=== PATIENT | male | born 1935 | race Caucasian/White ===

== ENCOUNTER → 2021-02-05 09:58 | Outpatient (BNVA) | payer MEDICARE, SELFPAY | PROVIDERS: PCP Nurse Practitioner Family; Referring Provider Nurse Practitioner Family; Visit Provider Internal Medicine Cardiovascular Disease | DX: I25.10 Atherosclerotic heart disease of native coronary artery without angina pectoris (principal); I10 Essential (primary) hypertension | CPT/HCPCS: 93005; 99202 ==

== ENCOUNTER 2021-03-26 08:16 | Outpatient (REF) | payer OTHER, SELFPAY ==
[2021-03-26 12:13] LABS: Alanine Aminotransferase 10 U/L (0-40); Albumin Level 3.6 g/dL (3.5-5.0); Alkaline Phosphatase 51 U/L (39-117); Anion Gap 13 (12-20); Aspartate Amino Transferase 15 U/L (5-37); Bilirubin Total 0.5 mg/dL (0.0-1.0); Blood Urea Nitrogen 15 mg/dL (9-16); Calcium 8.7 mg/dL (8.4-10.2); Carbon Dioxide 27 mmol/L (22-29); Chloride 106 mmol/L (96-108); Cholesterol 155 mg/dL; Estimated Glomerular Filt Rate > 60; Glucose Fasting 90 mg/dL (60-99); HDL Cholesterol 31 mg/dL; LDL Cholesterol Calculated 110 mg/dl; Potassium 4.1 mmol/L (3.3-5.1); Sodium 142 mmol/L (135-145); Total Protein 7.1 g/dL (6.5-8.0); Triglycerides 74 mg/dL
[2021-03-26 12:19] LABS: Prostate Specific Antigen Scr < 0.05 ng/mL (<0.05-4.0); TSH reflex Free T4 2.58 uIU/mL (0.32-4.0)
[2021-03-26 13:53] LABS: Appearance Urine CLEAR; Color Urine YELLOW; Glucose Urine UA NEG (NEG); Leukocyte Esterase Urine NEG (NEG); Nitrite Urine NEG (NEG); Specific Gravity - Urine 1.015 (1.005-1.025); UACC Culture Trigger NO; Urine Blood TRACE (NEG); Urine Ketones NEG (NEG); Urine Protein NEG (NEG-TRACE)
[2021-03-26 14:15] LABS: Bacteria Urine TRACE /LPF; Squamous Epithelial Cell Urine TRACE /LPF; WBC Urine 0-2 /HPF (0-4)
[2021-03-26 14:16] LABS: Hyaline Casts Urine 0-2 /LPF; Mucus Urine 1+ /LPF
== END 2021-03-26 08:17 | disposition home or self-care (01) ==
LOC: HO.HMGCLDS 08:16
PROVIDERS: PCP Nurse Practitioner Family; Visit Provider Nurse Practitioner Family
DX: Z00.00 Encounter for general adult medical examination without abnormal findings (principal); I10 Essential (primary) hypertension; Z12.5 Encounter for screening for malignant neoplasm of prostate
CPT/HCPCS: 36415; 80053; 80061; 81001; 84153; 84443

== ENCOUNTER → 2021-04-22 14:14 | Outpatient (REF) | payer OTHER, SELFPAY ==
--- NOTE | 2021-04-22 14:17 | CA_ITS ---
Transthoracic Echocardiogram Patient (Last, First, Middle): Aguila Sow G Gender: Male Date of : 1935 Age: 85 Procedure Date: 04/22/2021 Procedure Type: Transthoracic Echocardiogram Location: OP Height: 172.72 cm Weight: 77.11 kg BSA: 1.91 m2 Heart Rate: bpm BP: 140 / 86 mmHg Mirror Machine Feeder: DIDI Referring MD: Justin Roman [facility] Symptoms: Z95.1 - Presence of aortocoronary bypass graft Study Quality: Fair ECG Rhythm: Sinus Conclusions: - The left ventricular systolic function is normal. The calculated ejection fraction is 60% by biplane method. - The basal inferior segment is hypokinetic. - There is moderately decreased right ventricular systolic function. - There is mild calcification of the aortic valve. - There is mild dilatation of the ascending aorta measuring 3.90 cm. Findings Left Ventricle Normal left ventricular cavity size. There is mildly increased left ventricular wall thickness. The left ventricular systolic function is normal. The calculated ejection fraction is 60% by biplane method. There is evidence of regional wall motion abnormalities. Moderate focal hypertrophy of the basal septum. Wall Motion Rest Echo Findings The basal inferior segment is hypokinetic. Right Ventricle Normal right ventricular cavity size. There is moderately decreased right ventricular systolic function. Atria Both atria are normal in size. Aortic Valve There is a normal trileaflet aortic valve. There is mild calcification of the aortic valve. There is no aortic valve stenosis. There is trace (trivial) aortic valve regurgitation. Mitral Valve The mitral valve appears normal. There is trace mitral valve regurgitation. There is no mitral valve stenosis. Pulmonic Valve The pulmonic valve was not well visualized. Tricuspid Valve Normal tricuspid valve structure. There is trace tricuspid valve regurgitation. The pulmonary artery systolic pressure is normal. Great Vessels The aortic arch is normal in size. There is mild dilatation of the ascending aorta measuring 3.90 cm. Venous The inferior vena cava is normal in size and collapses greater than 50% with inspiration. Pericardium/Pleural There is no evidence of pericardial effusion. Prior Study Comparison No prior study available for comparison. Measurements 2D Linear Measurements IVSd: 1.06 0.6-0.9/0.6-1.0 cm LVIDd: 5.01 3.9-5.3/4.2-5.9 cm LVIDd Index: 2.62 2.4-3.2/2.2-3.1 cm/m2 LVIDs: 3.11 2.0-3.6 cm LVPWd: 1.27 0.7-1.1 cm Ao Root: 3.80 2.1-3.5 cm LA Diam: 3.60 2.7-3.8/3.0-4.0 cm LAIDs Index: 1.88 1.5-2.3 cm/m2 LV Mass: 280.48 67-162/88-224 g LV Mass Index: 146.85 43-95/49-115 g/m2 LVOT Diam: 2.10 3.0+(-)1.3 cm 2D Systolic Function EF 4C: 60.80 >55% EF 2C: 55.50 >55% EF BiP: 59.50 >55% Mitral Valve MV Pk E: 0.61 MV PK A: 0.88 MV Decel Time: 295.00 E/A: 0.70 E'Lateral: 5.00 E'Medial: 3.26 E/E' Med: 18.60 E/E' Lat: 12.10 PHT: 86.00 MVA PHT: 2.56 Decel [place]: 2.06 Aortic Valve AoV Pk Ag: 1.15 AoV Mn Ag: 0.80 AoV VTI: 0.24 AoV Pk Grad: 5.00 Aov Mn Grad: 3.00 FELIPE Cont.VTI: 2.44 LVOT LVOT Pk Ag: 0.83 LVOT Mn Ag: 0.60 LVOT VTI: 0.17 LVOT Pk Grad: 3.00 LVOT Mn Grad: 2.00 LVOT Diam: 2.10 LVOT Area: 3.46 Diastolic Function MV Pk E: 0.61 MV Pk A: 0.88 E/A: 0.70 E'Medial: 3.26 E/E' Med: 18.60 E' Laterial: 5.00 E/E' Lat: 12.10 Right Ventricle TAPSE (mm): 12.90 TVS' Ag: 10.80 Tricuspid Valve TR Pk Ag: 2.23 TR Pk Grad: 20.00 RA Press: 3.00 RVSP: 23.00 Great Vessels Aorta Ao Root-2D: 3.80 2.0-3.7 cm Ao Asc: 3.90 2.1-3.4 cm Ao Arch: 3.10 Updated in Other Vendor System with Status of Final Yovani Wilkerson MD electronically signed on 04/23/2021 4:35:01 PM with status of Final
== END ==
LOC: HO.CARD 14:14
PROVIDERS: Visit Provider Nurse Practitioner Family
DX: I10 Essential (primary) hypertension (principal); I25.10 Atherosclerotic heart disease of native coronary artery without angina pectoris; Z95.1 Presence of aortocoronary bypass graft
CPT/HCPCS: 93306

== ENCOUNTER 2021-04-29 11:55 | Outpatient (REF) | payer OTHER, SELFPAY ==
[2021-04-29 14:00] LABS: Urine Cytology See Pathology rpt
[2021-04-29 14:02] LABS: Appearance Urine HAZY; Color Urine YELLOW; Glucose Urine UA NEG (NEG); Leukocyte Esterase Urine NEG (NEG); Nitrite Urine NEG (NEG); PH 6.5 (5.0-8.0); Specific Gravity - Urine <= 1.005 (1.005-1.025); Urine Blood NEG (NEG); Urine Ketones NEG (NEG); Urine Protein TRACE MG/DL (NEG-TRACE)
[2021-04-29 14:10] LABS: RBC Urine 0-2 /HPF (0); Squamous Epithelial Cell Urine TRACE /LPF; WBC Urine 0-2 /HPF (0-4)
== END 2021-04-29 11:56 | disposition home or self-care (01) ==
LOC: HO.HMGCLDS 11:55
PROVIDERS: Visit Provider Nurse Practitioner Family
DX: R31.29 Other microscopic hematuria (principal)
CPT/HCPCS: 81001; 87086; 88112

== ENCOUNTER 2021-05-22 12:23 | Emergency (ER) | payer OTHER, SELFPAY ==
--- NOTE | ~2021-05-22 | CT_ITS ---
EXAMINATION: CT CHEST WITHOUT CONTRAST CLINICAL INFORMATION: Cough, dyspnea COMPARISON: Chest x-ray same day TECHNIQUE: Multidetector volumetric CT imaging of the chest was done. Axial MIP volume rendering provided. Sagittal and coronal reformatted images were obtained. This CT examination was performed using dose optimization techniques as appropriate, variously including the following: *Automated exposure control *Adjustment of mA and/or kV according to patient size (this includes techniques or standardized protocols for targeted exams where dose is matched to indication/reason for exam; i.e. extremities or head) *Use of iterative reconstruction technique DLP: 288 mGy-cm FINDINGS: The thoracic inlet is within normal limits. The axillary regions are unremarkable. Limited visualized upper abdominal structures show low-density lesion superior right liver of uncertain etiology. This may be incidental. Measures 1.5 cm. Otherwise grossly unremarkable upper abdominal structures. Probable gallstones in the gallbladder Centrally coronary calcifications are noted. Mildly prominent central nodes. This is a noncontrast study. Difficult to evaluate the hilar regions for adenopathy. This cannot be excluded. Imaging the lung joyner. Right lung; There is evidence of reticular nodular and airspace change in the right upper lung. Mild pleural parenchymal changes in the right lower lung. These could be chronic but atelectasis/pleural reaction would need to be considered. There are also some reticular nodular changes in the right lower lung involving the lung parenchyma. Calcified granulomas are noted Left lung There is only more mild interstitial change in the left lung. This could represent the patient's baseline. No large area of infiltrate or effusion. Probable basilar atelectasis or scarring. Calcified granuloma noted. CT/CT chest wo con IMPRESSION: Exam is most remarkable for reticular nodular change occurring in the right upper lung greater than right lower lobe. Findings suggest acute infiltrate. There is thickened pleural change at the right base in pleural-parenchymal markings which may be chronic versus acute pleural reaction. Attention to follow-up. More normal-appearing left lung with evidence of some scattered areas of opacity which may be chronic versus subtle mild areas of infiltrate. There is prominent central adenopathy. Given the findings in the lungs this could be reactive. Attention to follow-up. Small low-density lesion superior liver. May be incidental
--- NOTE | ~2021-05-22 | XR_ITS ---
EXAMINATION: XR CHEST CLINICAL INFORMATION: Cough. COMPARISON: None TECHNIQUE: Frontal view of the chest was obtained. FINDINGS: Diffuse, patchy right lung airspace opacities, most prominent within the mid right lung. Possible trace bilateral pleural effusions versus pleural thickening. No pneumothorax. Sternal wires and mediastinal surgical clips. No cardiomediastinal silhouette enlargement. XR/XR chest 1V IMPRESSION: Diffuse, patchy right lung airspace opacities which could represent multifocal pneumonia. Possible trace bilateral pleural effusions versus pleural thickening.
[2021-05-22 12:47] VITALS: BP 220/97; PULSE 65; RESP 18; TEMP 37.2; O2SAT 96; BMI 26.6
--- NOTE | 2021-05-22 12:53 | ECG_ITS ---
Test Reason : sob Blood Pressure : / mmHG Vent. Rate : 063 BPM Atrial Rate : 063 BPM P-R Int : 212 ms QRS Dur : 100 ms QT Int : 440 ms P-R-T Axes : 040 -33 033 degrees QTc Int : 450 ms Sinus rhythm with 1st degree A-V block Left axis deviation Inferior infarct , age undetermined Abnormal ECG No previous ECGs available Referred By: Generic ED Physician Electronically Signed By:TRACY ANDERSON MD
[2021-05-22 13:17] LABS: Basophils Percent Auto 0.1 % (0-2); Eosinophils Absolute Auto 0.1 X10*3/uL (0.0-0.4); Eosinophils Percent Auto 1.4 % (0-4); Hematocrit 31.7 % (42.0-52.0); Hemoglobin 10.3 g/dl (14.0-18.0); Imm Gran Abs Auto 0.08 X10*3/uL (0.00-0.03); Imm Gran Pct Auto 0.9 % (0.0-0.4); Lymphocytes Absolute Auto 1.4 X10*3/uL (1.2-4.9); Lymphocytes Percent Auto 16.1 % (20-40); MANUAL DIFF FLAG SCAN; Mean Corpuscular HGB Conc 32.5 g/dl (31.0-36.0); Mean Corpuscular Volume 89.3 fL (80.0-98.0); Mean Platelet Volume 10.5 fL (9.4-12.4); Monocytes Absolute Auto 1.8 X10*3/uL (0.1-1.2); Monocytes Percent Auto 20.8 % (2-11); Neutrophils Absolute Auto 5.3 x10*3/uL (2.0-8.3); Neutrophils Percent Auto 60.7 % (45-73); Platelet Count 186 X10*3/uL (160-400); Red Blood Count 3.55 X10*6/uL (4.60-5.80); Red Cell Distribution Width 13.3 % (11.0-16.0); SCAN SMEAR FLAG 1; White Blood Count 8.7 X10*3/uL (4.8-10.8)
[2021-05-22 13:30] LABS: Anion Gap 14 (12-20); Blood Urea Nitrogen 19 mg/dL (9-16); COVID-19 Test Negative (Negative); Calcium 8.6 mg/dL (8.4-10.2); Carbon Dioxide 24 mmol/L (22-29); Chloride 105 mmol/L (96-108); Creatinine Clr Calc Pharmacy 48.8; Estimated Glomerular Filt Rate > 60; Glucose Random 119 mg/dL (60-115); Potassium 4.5 mmol/L (3.3-5.1); Sodium 138 mmol/L (135-145)
[2021-05-22 13:36] LABS: Troponin-I High Sensitivity 10.2 ng/L (<3.5-35.0)
[2021-05-22 13:38] LABS: SLIDE REVIEW VERIFIED
--- NOTE | 2021-05-22 14:28 | ED.SOB ---
HPI - SOB/Dyspnea General Chief Complaint: Upper Respiratory Symptoms Stated Complaint: Cough/Congested Time Seen by Provider: 05/22/21 12:37 Source: patient and family Mode of arrival: ambulatory Limitations: no limitations History of Present Illness HPI Narrative: states his doctor could not see him and they kept canceling his appointments MD elicited complaint: shortness of breath and cough Onset (ago): month(s) (3) Context: other (worse with laying flat, has post nasal drip, noted wheezing, worse with sleeping, runny nose, itchy eyes, blows his nose a lot) Timing: intermittent Exacerbating factors: lying flat Relieving factors: upright position Associated symptoms: wheezing and other (post nasal drip, itchy watery eyes) Related Data Home Medications Medication Instructions Recorded Confirmed amlodipine 10 mg tablet 10 mg PO DAILY 11/29/20 03/17/21 aspirin 81 mg tablet,delayed 81 mg PO DAILY 01/13/21 03/17/21 release Previous Rx's Medication Instructions Recorded losartan 100 mg tablet 100 mg PO DAILY 90 Days #90 tab 05/21/21 Allergies Allergy/AdvReac Type Severity Reaction Status Date / Time codeine Allergy Mild mild Verified 03/17/21 11:40 Penicillins Allergy Mild mild Verified 03/17/21 11:40 morphine Allergy Unknown unknown Verified 03/17/21 11:40 Review of Systems Review of Systems: Constitutional : No Fever, No Chills ENT/Mouth : No sore throat, No Rhinorrhea, No Swallowing Difficulty, pos post nasal drip Eyes: No Eye Pain, No Swelling, No Redness Cardiovascular : No Chest Pain, positive SOB, pos Orthopnea, no Edema Respiratory : No Cough, No Sputum, pos Wheezing, positive dyspnea Gastrointestinal : No Nausea, No Vomiting, No Diarrhea, No abdominal Pain, No Hematochezia, No Melena Genitourinary : No Dysuria, No Urinary Frequency, No Hematuria Musculoskeletal : No joint pain, No Myalgias Skin : No Skin Lesions, No rash Neuro : No Weakness, No Numbness, No Dizziness, No Headache Psych : No Anxiety/Panic, No Depression Heme/Lymph: No Bruising, No Lymphadenopathy Endocrine : No Polyuria, No Polydipsia All other systems reviewed and are negative [facility] Past Medical History Attestation statement: The following information was validated with the patient. Medical History CAD (coronary artery disease) Cancer of skin of left ear High blood pressure HTN (hypertension) Prostate cancer Surgical History S/P CABG x 5 Family History Family History Mother High blood pressure Father Heart disease Other Substance use disorder Social History Social History Housing: Other (assisted living) Patient Tobacco Use Status: Former Tobacco user Tobacco use type: Cigarette Advance Directives: No Advance Directives Information Provided: Yes Current occupational status: retired Physical Exam Vital Signs: Vital Signs: Last Vital Signs Temp 98.5 F 05/22/21 15:35 Pulse 78 05/22/21 15:35 Resp 18 05/22/21 15:35 BP 211/102 H 05/22/21 15:45 Pulse Ox 95 05/22/21 15:35 BMI result Body Mass Index 26.6 Appearance: Alert. Oriented X3. No acute distress. Eyes: Pupils equal, round and reactive to light. ENT: Pharynx normal. Clear runny nose boggy turbinates bilaterally Neck: Normal inspection. Neck supple. CVS: Normal heart rate and rhythm. Pulses normal. Respiratory: No respiratory distress. Breath sounds diffuse end exp wheezes noted posteriorly Abdomen: Soft and non-tender. Skin: Skin warm and dry. Normal skin color. Normal skin turgor. Extremities: No lower extremity edema. Neuro: Oriented X 3. No motor deficit. No sensory deficit. Course Course Course Narrative: BP high - did not take his BP medications this AM, does not sound like he is very compliant with his medications trop is flat, BNP in 400s CT scan ordered, hazy areas R lung - signed out to Dr. Ortiz pending CT scan and review of BPs CXR possible multifocal PNA - R lung possible infection suspected 413pm cultures and lactic acid ordered 98% on RA MDM - SOB/Dyspnea MDM Narrative Medical decision making narrative: 85 yo male with hx of HTN, dementia, hematuria, CAD, weakness here with c/o wheezing, post nasal drip, worse at night laying flat, has not received any treatment not on diuretics. He has no CP. At this time will need troponin x 2, BNP, CXR, neb treatment. Could possibly be post nasal drip may benefit from fluticasone. Dispo per results and findings. Lab Data Result diagrams: 05/22/21 13:08 05/22/21 13:08 Labs: Lab Results 05/22/21 05/22/21 05/22/21 Range/Units 13:08 13:08 13:08 WBC 8.7 (4.8-10.8) X10*3/uL RBC 3.55 L (4.60-5.80) X10*6/uL Hgb 10.3 L (14.0-18.0) g/dl Hct 31.7 L (42.0-52.0) % MCV 89.3 (80.0-98.0) fL MCH 29.0 (27.0-33.0) pg MCHC 32.5 (31.0-36.0) g/dl RDW 13.3 (11.0-16.0) % Plt Count 186 (160-400) X10*3/uL MPV 10.5 (9.4-12.4) fL Immature Gran % (Auto) 0.9 H (0.0-0.4) % Neut % (Auto) 60.7 (45-73) % Lymph % (Auto) 16.1 L (20-40) % [place] % (Auto) 20.8 H (2-11) % Eos % (Auto) 1.4 (0-4) % Baso % (Auto) 0.1 (0-2) % Lymph # (Auto) 1.4 (1.2-4.9) X10*3/uL [place] # (Auto) 1.8 H (0.1-1.2) X10*3/uL Eos # (Auto) 0.1 (0.0-0.4) X10*3/uL Baso # (Auto) 0.0 (0.0-0.2) X10*3/uL Abs Immat Gran (auto) 0.08 H (0.00-0.03) X10*3/uL Absolute Neuts (auto) 5.3 (2.0-8.3) x10*3/uL Absolute Nucleated RBC 0.000 (0.0-0.012) X10*3/uL Nucleated RBC % (auto) 0.0 (0.0-0.2) /100WBC Smear Tech's Comments VERIFIED Sodium 138 (135-145) mmol/L Potassium 4.5 (3.3-5.1) mmol/L Chloride 105 (96-108) mmol/L Carbon Dioxide 24 (22-29) mmol/L Anion Gap 14 (12-20) BUN 19 H (9-16) mg/dL Creatinine 1.09 (0.5-1.4) mg/dL Estim Creat Clear Calc 48.8 Estimated GFR > 60 Random Glucose 119 H (60-115) mg/dL Calcium 8.6 (8.4-10.2) mg/dL Total Bilirubin 0.5 (0.0-1.0) mg/dL Direct Bilirubin 0.2 (0.0-0.5) mg/dL AST 15 (5-37) U/L ALT 11 (0-40) U/L Alkaline Phosphatase 43 (39-117) U/L Troponin I High Sens (<3.5-35.0) ng/L B-Natriuretic Peptide (<100) pg/mL Total Protein 6.4 L (6.5-8.0) g/dL Albumin 3.4 L (3.5-5.0) g/dL COVID-19 (MANOJ) Negative (Negative) COVID-19 Clin Com See Note 05/22/21 05/22/21 05/22/21 Range/Units 13:08 15:16 15:16 WBC (4.8-10.8) X10*3/uL RBC (4.60-5.80) X10*6/uL Hgb (14.0-18.0) g/dl Hct (42.0-52.0) % MCV (80.0-98.0) fL MCH (27.0-33.0) pg MCHC (31.0-36.0) g/dl RDW (11.0-16.0) % Plt Count (160-400) X10*3/uL MPV (9.4-12.4) fL Immature Gran % (Auto) (0.0-0.4) % Neut % (Auto) (45-73) % Lymph % (Auto) (20-40) % [place] % (Auto) (2-11) % Eos % (Auto) (0-4) % Baso % (Auto) (0-2) % Lymph # (Auto) (1.2-4.9) X10*3/uL [place] # (Auto) (0.1-1.2) X10*3/uL Eos # (Auto) (0.0-0.4) X10*3/uL Baso # (Auto) (0.0-0.2) X10*3/uL Abs Immat Gran (auto) (0.00-0.03) X10*3/uL Absolute Neuts (auto) (2.0-8.3) x10*3/uL Absolute Nucleated RBC (0.0-0.012) X10*3/uL Nucleated RBC % (auto) (0.0-0.2) /100WBC Smear Tech's Comments Sodium (135-145) mmol/L Potassium (3.3-5.1) mmol/L Chloride (96-108) mmol/L Carbon Dioxide (22-29) mmol/L Anion Gap (12-20) BUN (9-16) mg/dL Creatinine (0.5-1.4) mg/dL Estim Creat Clear Calc Estimated GFR Random Glucose (60-115) mg/dL Calcium (8.4-10.2) mg/dL Total Bilirubin (0.0-1.0) mg/dL Direct Bilirubin (0.0-0.5) mg/dL AST (5-37) U/L ALT (0-40) U/L Alkaline Phosphatase (39-117) U/L Troponin I High Sens 10.2 9.6 (<3.5-35.0) ng/L B-Natriuretic Peptide 404 H (<100) pg/mL Total Protein (6.5-8.0) g/dL Albumin (3.5-5.0) g/dL COVID-19 (MANOJ) (Negative) COVID-19 Clin Com ECG Data Attestation: I personally reviewed and interpreted this ECG as follows: ECG interpretation date: 05/22/21 ECG interpretation time: 14:30 Interpretation: Rate: 63 Rhythm: NSR with 1st degree AVB Lester: left Normal P waves. 1st degree avb. Normal QRS complex. q waves in inf leads appear new from 2020 ST T wave : no MANNY, inverted V1-V2 qTC: normal prior studies: ECG in office 2020 new q waves and V2 t wave inversion is new The study has been interpreted contemporaneously by me. Discharge Plan Discharge Clinical Impression: Acute dyspnea HTN (hypertension) Qualifiers: Hypertension type: unspecified Qualified Code(s): I10 - Essential (primary) hypertension Patient Disposition: Still a Patient Prescriptions: No Action amlodipine 10 mg tablet 10 mg PO DAILY 0RF losartan 100 mg tablet 100 mg PO DAILY 90 Days Qty: 90 0RF aspirin 81 mg tablet,delayed release (DR/EC) 81 mg PO DAILY 0RF
[2021-05-22] MEDS: Albuterol Sulfate (0.083%) 2.5 MG/3 ML VIAL.NEB INHALE (14:50)
[2021-05-22 14:53] VITALS: PULSE 61; RESP 20; O2SAT 100
[2021-05-22 14:54] LABS: Alanine Aminotransferase 11 U/L (0-40); Albumin Level 3.4 g/dL (3.5-5.0); Alkaline Phosphatase 43 U/L (39-117); Aspartate Amino Transferase 15 U/L (5-37); Bilirubin Direct 0.2 mg/dL (0.0-0.5); Bilirubin Total 0.5 mg/dL (0.0-1.0); Total Protein 6.4 g/dL (6.5-8.0)
[2021-05-22 15:35] VITALS: BP 215/142; PULSE 78; RESP 18; TEMP 36.9; O2SAT 95
[2021-05-22 15:41] LABS: B Type Natriuretic Peptide 404 pg/mL (<100); Troponin-I High Sensitivity 9.6 ng/L (<3.5-35.0)
[2021-05-22 15:45] VITALS: BP 211/102
[2021-05-22] MEDS: Metoprolol Succinate ER 25 MG TAB.ER.24H PO (15:50)
[2021-05-22] MEDS: amLODIPine Besylate 10 MG TABLET PO (15:50)
--- NOTE | 2021-05-22 17:29 | PC.NURSE ---
pt a very difficult IV stick and phlebotomy stick. IV established but phlebotomy contacted for the blood cultures and lactic that is still needed, contacted phlebtomy as 2 attempts done
[2021-05-22 18:01] LABS: Lactic Acid 1.2 mmol/L (0.5-2.0)
[2021-05-22] MEDS: cefTRIAXone sodium 1 GM in 0.9 % Sodium Chloride 50 ML IV (18:28)
[2021-05-22] MEDS: Doxycycline Hyclate 100 MG in 0.9 % Sodium Chloride 250 ML 166.67 MG IV (19:16)
[2021-05-22 19:22] VITALS: BP 178/79; PULSE 72; RESP 18; O2SAT 93
[2021-05-22 19:25] LABS: Influenza A PCR NEGATIVE (Negative); Influenza B PCR NEGATIVE (Negative); Resp Syncy Virus RNA Qual PCR NEGATIVE (Negative); SARS COV2 PCR INHOUSE NEGATIVE (Negative)
[2021-05-22 20:46] VITALS: BP 149/84; PULSE 73; RESP 15; TEMP 36.9; O2SAT 95
== END 2021-05-22 20:56 | disposition home or self-care (01) ==
PROVIDERS: Emergency Medicine; Nurse Practitioner Family; Emergency Provider Emergency Medicine; PCP Nurse Practitioner Family
DX: R05.9 Cough, unspecified (principal); R06.02 Shortness of breath; Z20.822 Contact with and (suspected) exposure to COVID-19; I10 Essential (primary) hypertension; Z79.82 Long term (current) use of aspirin; Z79.899 Other long term (current) drug therapy
CPT/HCPCS: 0241U; 36415; 71045; 71250; 80048; 80076; 83605; 83880; 84484; 85025; 87040; 87502; 87635; 93005; 96365; 96367; 99284; J0696

== ENCOUNTER 2021-06-06 14:45 | Outpatient (REF) | payer OTHER, SELFPAY ==
[2021-06-06 16:37] LABS: Urine Cytology See Pathology rpt
== END 2021-06-06 14:46 | disposition home or self-care (01) ==
LOC: HO.LAB 14:45
PROVIDERS: PCP Nurse Practitioner Family
DX: R31.29 Other microscopic hematuria (principal)
CPT/HCPCS: 88112; 99202

== ENCOUNTER 2021-07-31 08:14 | Outpatient (REF) | payer OTHER, SELFPAY ==
[2021-07-31 11:23] LABS: Appearance Urine CLEAR; Color Urine YELLOW; Glucose Urine UA NEG (NEG); Leukocyte Esterase Urine NEG (NEG); Nitrite Urine NEG (NEG); UACC Culture Trigger NO; Urine Blood 1+ (NEG); Urine Ketones NEG (NEG); Urine Protein NEG (NEG-TRACE)
[2021-07-31 11:36] LABS: Basophils Percent Auto 0.3 % (0-2); Eosinophils Absolute Auto 0.1 X10*3/uL (0.0-0.4); Hematocrit 37.6 % (42.0-52.0); Hemoglobin 12.3 g/dl (14.0-18.0); Imm Gran Abs Auto 0.02 X10*3/uL (0.00-0.03); Imm Gran Pct Auto 0.3 % (0.0-0.4); Lymphocytes Absolute Auto 2.2 X10*3/uL (1.2-4.9); MANUAL DIFF FLAG SCAN; Mean Corpuscular HGB Conc 32.7 g/dl (31.0-36.0); Mean Corpuscular Hemoglobin 29.7 pg (27.0-33.0); Mean Corpuscular Volume 90.8 fL (80.0-98.0); Mean Platelet Volume 11.6 fL (9.4-12.4); Monocytes Absolute Auto 1.6 X10*3/uL (0.1-1.2); Monocytes Percent Auto 23.1 % (2-11); Neutrophils Absolute Auto 3.1 x10*3/uL (2.0-8.3); Neutrophils Percent Auto 44.3 % (45-73); Platelet Count 136 X10*3/uL (160-400); Red Blood Count 4.14 X10*6/uL (4.60-5.80); Red Cell Distribution Width 14.6 % (11.0-16.0); SCAN SMEAR FLAG 1
[2021-07-31 11:51] LABS: SLIDE REVIEW VERIFIED
[2021-07-31 11:57] LABS: Alanine Aminotransferase 11 U/L (0-40); Alkaline Phosphatase 45 U/L (39-117); Anion Gap 12 (12-20); Aspartate Amino Transferase 18 U/L (5-37); Bilirubin Total 0.8 mg/dL (0.0-1.0); Blood Urea Nitrogen 17 mg/dL (9-16); Calcium 8.9 mg/dL (8.4-10.2); Carbon Dioxide 26 mmol/L (22-29); Chloride 104 mmol/L (96-108); Cholesterol 158 mg/dL; Estimated Glomerular Filt Rate > 60; Glucose Fasting 90 mg/dL (60-99); HDL Cholesterol 40 mg/dL; LDL Cholesterol Calculated 107 mg/dl; Potassium 4.2 mmol/L (3.3-5.1); Sodium 138 mmol/L (135-145); Total Protein 7.6 g/dL (6.5-8.0); Triglycerides 55 mg/dL
[2021-07-31 12:01] LABS: TSH reflex Free T4 3.28 uIU/mL (0.32-4.0)
[2021-07-31 12:16] LABS: WBC Urine 0 /HPF (0-4)
== END 2021-07-31 08:15 | disposition home or self-care (01) ==
LOC: HO.HMGCLDS 08:14
PROVIDERS: PCP Nurse Practitioner Family; Visit Provider Nurse Practitioner Family
DX: F32.A Depression, unspecified (principal)
CPT/HCPCS: 36415; 80053; 80061; 81001; 84443; 85025

== ENCOUNTER → 2021-08-14 10:11 | Outpatient (BNVA) | payer OTHER, SELFPAY | PROVIDERS: PCP Nurse Practitioner Family; Visit Provider Urology | DX: N39.3 Stress incontinence (female) (male) (principal); R31.29 Other microscopic hematuria; C61 Malignant neoplasm of prostate | CPT/HCPCS: 99202 ==

== ENCOUNTER 2021-09-09 10:10 | Outpatient (REF) | payer OTHER, SELFPAY ==
[2021-09-09 12:15] LABS: Baso%MD 0.1 %; Eos%MD 0.4 %; Hematocrit 36.5 % (42.0-52.0); Hemoglobin 12.1 g/dl (14.0-18.0); IG%MD 0.4 %; Lymph%MD 30.9 %; Mean Corpuscular HGB Conc 33.2 g/dl (31.0-36.0); Mean Corpuscular Hemoglobin 29.5 pg (27.0-33.0); Mean Platelet Volume 10.5 fL (9.4-12.4); Mono%MD 22.1 %; Neut%MD 46.1 %; Platelet Count 138 X10*3/uL (160-400); Red Cell Distribution Width 13.5 % (11.0-16.0); White Blood Count 6.9 X10*3/uL (4.8-10.8)
[2021-09-09 12:36] LABS: Anion Gap 12 (12-20); Blood Urea Nitrogen 17 mg/dL (9-16); Calcium 9.2 mg/dL (8.4-10.2); Carbon Dioxide 26 mmol/L (22-29); Chloride 103 mmol/L (96-108); Estimated Glomerular Filt Rate > 60; Glucose Random 87 mg/dL (60-115); Potassium 4.4 mmol/L (3.3-5.1); Sodium 137 mmol/L (135-145)
[2021-09-09 12:48] LABS: Band Neutrophils Percent 0 % (3-5); Lymphocytes Absolute Manual 1.7 X10*3/uL (1.2-4.9); Lymphocytes Percent Manual 25 % (20-40); Monocytes Absolute Manual 1.2 X10*3/uL (0.1-1.2); Monocytes Percent Manual 17 % (2-11); Neutrophils Percent Manual 58 % (45-73)
[2021-09-09 12:49] LABS: Platelet Estimate SLIGHTLY DECREASED (NORMAL); Platelet Morphology Comment NORMAL; RBC Morphology NORMAL
[2021-09-09 13:00] LABS: Erythrocyte Sedimentation Rate 19 MM/HR (0-15)
[2021-09-09 13:01] LABS: TSH reflex Free T4 2.14 uIU/mL (0.32-4.0)
[2021-09-09 13:07] LABS: Folate > 20.0 ng/mL (> or = 4.0); Vitamin B12 822 pg/mL (200-900)
[2021-09-10 08:11] LABS: Syphilis Screen Nonreactive (Nonreactive)
== END 2021-09-09 10:11 | disposition home or self-care (01) ==
LOC: HO.LAB 10:10
PROVIDERS: PCP Nurse Practitioner Family; Visit Provider Psychiatry & Neurology Neurology
DX: F32.A Depression, unspecified (principal); R44.3 Hallucinations, unspecified; R41.3 Other amnesia
CPT/HCPCS: 36415; 80048; 82607; 82746; 84443; 85007; 85027; 85652; 86780; 99202

== ENCOUNTER 2021-09-26 08:27 | Outpatient (REF) | payer OTHER, SELFPAY ==
--- NOTE | ~2021-09-26 | CT_ITS ---
EXAMINATION: CT HEAD WITHOUT CONTRAST CLINICAL INFORMATION: Amnesia COMPARISON: None TECHNIQUE: Contiguous axial imaging was performed from the skull base to vertex without intravenous administration of contrast. This CT examination was performed using dose optimization techniques as appropriate, variously including the following: *Automated exposure control *Adjustment of mA and/or kV according to patient size (this includes techniques or standardized protocols for targeted exams where dose is matched to indication/reason for exam; i.e. extremities or head) *Use of iterative reconstruction technique DLP: 794 mGy-cm FINDINGS: There is no evidence of an extra-axial collection. There is no evidence of intra-axial or extra-axial hemorrhage. The ventricles and extra-axial CSF spaces are prominent just above generalized atrophy. There is nonspecific periventricular white matter disease. There are right basal ganglia and left thalamic lacunar infarcts. No mass, mass effect or other infarct is seen. There is evidence of atherosclerotic disease. Review at bone windows is normal. There is membranous soft tissue thickening seen in the left maxillary sinus. Visualized paranasal sinuses and mastoid air cells are otherwise clear. CT/CT head/brain wo con IMPRESSION: No acute intracranial findings. Generalized atrophy, nonspecific periventricular white matter disease and lacunar infarcts in the right basal ganglia and left thalamus.
== END 2021-09-26 08:28 | disposition home or self-care (01) ==
LOC: HO.CT 08:27
PROVIDERS: PCP Nurse Practitioner Family; Visit Provider Psychiatry & Neurology Neurology
DX: R41.3 Other amnesia (principal)
CPT/HCPCS: 70450

== ENCOUNTER 2021-09-30 07:58 | Outpatient (REF) | payer OTHER, SELFPAY ==
[2021-09-30 11:21] LABS: Appearance Urine CLEAR; Color Urine YELLOW; Glucose Urine UA NEG (NEG); Leukocyte Esterase Urine NEG (NEG); Nitrite Urine NEG (NEG); PH 6.5 (5.0-8.0); Specific Gravity - Urine 1.015 (1.005-1.025); UACC Culture Trigger NO; Urine Blood 2+ (NEG); Urine Ketones NEG (NEG); Urine Protein NEG (NEG-TRACE)
[2021-09-30 11:44] LABS: Squamous Epithelial Cell Urine 1+ /LPF; WBC Urine 0 /HPF (0-4)
== END 2021-09-30 07:59 | disposition home or self-care (01) ==
LOC: HO.HMGCLDS 07:58
PROVIDERS: PCP Nurse Practitioner Family; Visit Provider Nurse Practitioner Family
DX: F32.A Depression, unspecified (principal)
CPT/HCPCS: 81001

== ENCOUNTER 2021-10-01 08:49 | Outpatient (REF) | payer OTHER, SELFPAY ==
[2021-10-01 11:51] LABS: Basophils Percent Auto 0.2 % (0-2); Eosinophils Absolute Auto 0.1 X10*3/uL (0.0-0.4); Eosinophils Percent Auto 0.9 % (0-4); Hemoglobin 13.1 g/dl (14.0-18.0); Imm Gran Abs Auto 0.02 X10*3/uL (0.00-0.03); Imm Gran Pct Auto 0.3 % (0.0-0.4); Lymphocytes Absolute Auto 2.2 X10*3/uL (1.2-4.9); Lymphocytes Percent Auto 33.6 % (20-40); MANUAL DIFF FLAG SCAN; Mean Corpuscular HGB Conc 33.6 g/dl (31.0-36.0); Mean Corpuscular Hemoglobin 30.2 pg (27.0-33.0); Mean Corpuscular Volume 89.9 fL (80.0-98.0); Mean Platelet Volume 11.4 fL (9.4-12.4); Monocytes Absolute Auto 1.6 X10*3/uL (0.1-1.2); Monocytes Percent Auto 24.2 % (2-11); Neutrophils Absolute Auto 2.7 x10*3/uL (2.0-8.3); Neutrophils Percent Auto 40.8 % (45-73); Platelet Count 134 X10*3/uL (160-400); Red Blood Count 4.34 X10*6/uL (4.60-5.80); SCAN SMEAR FLAG 1; White Blood Count 6.6 X10*3/uL (4.8-10.8)
[2021-10-01 12:29] LABS: SLIDE REVIEW VERIFIED
[2021-10-01 14:27] LABS: TSH reflex Free T4 2.11 uIU/mL (0.32-4.0)
[2021-10-01 14:49] LABS: Alanine Aminotransferase 10 U/L (0-40); Albumin Level 4.3 g/dL (3.5-5.0); Alkaline Phosphatase 46 U/L (39-117); Anion Gap 15 (12-20); Aspartate Amino Transferase 16 U/L (5-37); Bilirubin Total 0.8 mg/dL (0.0-1.0); Blood Urea Nitrogen 20 mg/dL (9-16); Calcium 8.8 mg/dL (8.4-10.2); Carbon Dioxide 26 mmol/L (22-29); Chloride 105 mmol/L (96-108); Cholesterol 180 mg/dL; Estimated Glomerular Filt Rate 58; Glucose Fasting 97 mg/dL (60-99); HDL Cholesterol 38 mg/dL; LDL Cholesterol Calculated 128 mg/dl; Potassium 4.4 mmol/L (3.3-5.1); Sodium 142 mmol/L (135-145); Total Protein 7.6 g/dL (6.5-8.0); Triglycerides 72 mg/dL
[2021-10-02 17:07] LABS: Lyme Abs Screen <0.90 index
== END 2021-10-01 08:50 | disposition home or self-care (01) ==
LOC: HO.HMGCLDS 08:49
PROVIDERS: PCP Nurse Practitioner Family; Visit Provider Nurse Practitioner Family
DX: I10 Essential (primary) hypertension (principal); T14.8XXA Other injury of unspecified body region, initial encounter; W57.XXXA Bitten or stung by nonvenomous insect and other nonvenomous arthropods, initial encounter
CPT/HCPCS: 36415; 80053; 80061; 84443; 85025; 86617; 86618

== ENCOUNTER → 2021-11-25 07:58 | Outpatient (BNVA) | payer OTHER, SELFPAY | PROVIDERS: PCP Nurse Practitioner Family; Visit Provider Psychiatry & Neurology Neurology | DX: R41.3 Other amnesia (principal); R44.3 Hallucinations, unspecified | CPT/HCPCS: 99212 ==

== ENCOUNTER → 2022-02-05 12:31 | Outpatient (BNVA) | payer OTHER, SELFPAY | PROVIDERS: PCP Nurse Practitioner Family; Referring Provider Nurse Practitioner Family; Visit Provider Internal Medicine Cardiovascular Disease | DX: I25.10 Atherosclerotic heart disease of native coronary artery without angina pectoris (principal); I10 Essential (primary) hypertension; Z79.82 Long term (current) use of aspirin; Z79.899 Other long term (current) drug therapy | CPT/HCPCS: 93005; 99212 ==

== ENCOUNTER → 2022-03-03 15:27 | Outpatient (BNVA) | payer OTHER, SELFPAY | PROVIDERS: PCP Nurse Practitioner Family; Visit Provider Psychiatry & Neurology Neurology | DX: F32.A Depression, unspecified (principal); R41.3 Other amnesia; I25.10 Atherosclerotic heart disease of native coronary artery without angina pectoris; I10 Essential (primary) hypertension; Z91.81 History of falling; Z95.1 Presence of aortocoronary bypass graft | CPT/HCPCS: 99212 ==

== ENCOUNTER 2022-04-24 19:53 | Inpatient (IN) | payer OTHER, SELFPAY ==
--- NOTE | ~2022-04-24 | XR_ITS ---
EXAMINATION: XR CHEST CLINICAL INFORMATION: Change in mental status, evaluate for pneumonia. COMPARISON: Chest radiograph 05/22/2021. TECHNIQUE: Frontal view of the chest was obtained. FINDINGS: Stable prominence of the cardiomediastinal silhouette. Midline sternotomy wires and mediastinal surgical clips are redemonstrated. No focal infiltrate or pneumothorax. Unchanged mild blunting of the right costophrenic angle that is likely associated with trace amount of right-sided pleural fluid and pleural thickening. No acute osseous abnormalities. XR/XR chest 1V IMPRESSION: 1. No focal infiltrate or pneumothorax. 2. Unchanged trace amount of right-sided pleural fluid and pleural thickening.
--- NOTE | ~2022-04-24 | CT_ITS ---
EXAMINATION: CT HEAD WITHOUT CONTRAST CLINICAL INFORMATION: increasing weakness COMPARISON: 04/24/2022 TECHNIQUE: Multidetector volumetric imaging of the head was performed without intravenous contrast material. This CT examination was performed using dose optimization techniques as appropriate, variously including the following: *Automated exposure control *Adjustment of mA and/or kV according to patient size (this includes techniques or standardized protocols for targeted exams where dose is matched to indication/reason for exam; i.e. extremities or head) *Use of iterative reconstruction technique Dose: 670 mGy-cm FINDINGS: Areas of acute infarct in the left frontal lobe eid radiata the superolateral left frontal lobe are more pronounced as compared to prior CT and is consistent with evolution of the infarcts identified on the recent MRI of brain. No new, additional foci of parenchymal hypoattenuation. No hemorrhagic conversion. Multiple chronic lacunar infarcts are again noted in the wrist ganglion. Multiple additional foci of hypoattenuation in the subcortical and periventricular white matter are most consistent with chronic microangiopathic changes. Enlargement of the ventricles is portion to the degree of sulcal enlargement with the callosal angle of 75 degrees. There is no evidence of acute intracranial hemorrhage or large territorial infarction. No abnormal mass-effect or midline shift is seen. Andrews to white matter differentiation is well preserved. No extra axial fluid collections. Calcific atherosclerosis is present within the cavernous segments of the internal carotid arteries. Globes are aphakic. No acute osseous or soft tissue abnormalities.. The sinuses and mastoid air cells are clear. CT/CT head/brain wo IV con IMPRESSION: 1. Small involving white matter infarcts in the left frontal lobe. No hemorrhagic conversion. 2. No new acute intracranial abnormalities.
--- NOTE | ~2022-04-24 | CT_ITS ---
EXAMINATION: CT HEAD WITHOUT CONTRAST CLINICAL INFORMATION: Aphasia, left facial drop. COMPARISON: CT head 09/26/2021. TECHNIQUE: Contiguous axial imaging was performed from the skull base to vertex without intravenous administration of contrast. This CT examination was performed using dose optimization techniques as appropriate, variously including the following: *Automated exposure control *Adjustment of mA and/or kV according to patient size (this includes techniques or standardized protocols for targeted exams where dose is matched to indication/reason for exam; i.e. extremities or head) *Use of iterative reconstruction technique DLP: 683 mGy-cm FINDINGS: Age indeterminate small hypodensity in the left basal ganglia (6:43), new compared to 09/26/2021. Additional age indeterminate small hypodensity adjacent to the right frontal horn of the lateral ventricle (8:45), new compared to 09/26/2021. There is no evidence of acute intracranial hemorrhage or edematous territorial infarction. Scattered hypoattenuation in the periventricular and deep white matter are consistent with moderate microangiopathy. Multiple chronic lacunar infarcts in the basal ganglia redemonstrated. Andrews-white matter differentiation is preserved. Proportional prominence of the ventricles and sulcal spaces. No evidence for obstructive hydrocephalus. No abnormal mass effect or midline shift. No extra-axial fluid collections. No acute soft tissue or osseous abnormalities. Mucosal thickening of the paranasal sinuses. No air-fluid levels. The mastoids and middle ear cavities are clear. Bilateral lens extraction. CT/CT head for stroke IMPRESSION: 1. Age-indeterminate small hypodensities, new compared to 09/26/2021. If an acute cerebrovascular accident is clinically suspected, consider correlation with an MR of the brain. 2. No evidence of acute intracranial hemorrhage or edematous territorial infarction. 3. 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 This critical result was discussed with Dr. Salcido at 04/24/2022 8:27 PM and it was ascertained that the content and urgency of the report was understood at the time of direct communication.
--- NOTE | ~2022-04-24 | MR_ITS ---
EXAMINATION: MR BRAIN WITHOUT CONTRAST CLINICAL INFORMATION: Dysarthria. Assess for stroke. COMPARISON: CT from 04/25/2022. TECHNIQUE: Multiplanar, multisequence imaging of the brain was performed without contrast. FINDINGS: There is a focal area of restricted diffusion in the left frontal eid radiata extending to the subcortical white matter of the left frontal lobe superolaterally, consistent with an acute infarct. No hemorrhagic conversion or mass effect evident. A linear focus of low signal in the left cerebellar white matter may be due to mineralization or a chronic microhemorrhage. No mass effect or midline shift is seen. Moderate chronic white matter microangiopathic changes noted with significant diffuse volume loss and ex vacuo dilatation of the ventricles. There are numerous prominent perivascular spaces in the basal ganglia bilaterally. Small chronic infarct visible in the body of the corpus callosum on the right side. No extra-axial fluid collections are seen. The brainstem is normal. There are small chronic infarcts in the right cerebellar hemisphere. The craniovertebral junction, marrow signal, and remaining midline structures are normal. The major intracranial flow voids at the level of the [place] are preserved. The dural venous sinus flow voids are maintained. Mild mucosal thickening and small retention cysts visible in the paranasal sinuses. The mastoid air cells are clear. MR/MR head/brain wo con IMPRESSION: Acute infarct in the left frontal lobe without mass effect or hemorrhagic conversion as described. Significant diffuse parenchymal volume loss and moderate chronic white matter microangiopathy. 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
--- NOTE | ~2022-04-24 | CT_ITS ---
EXAMINATION: CT ANGIOGRAM HEAD CT ANGIOGRAM NECK CLINICAL INFORMATION: CVA COMPARISON: None. TECHNIQUE: Initial noncontrast studio hand imaging of the head and neck was performed. Comparison is made with noncontrast head CT from earlier today. Test bolus sequences followed by intravenous administration 70 mL of Omnipaque 350. Helical imaging was performed in the axial plane from the aortic arch to the skull vertex. Delayed postcontrast imaging of the head was also performed. The data was processed at the time study technologist's workstation for generation of MIP sequences. Angled MIPs and volume rendered reformatted images were also generated at an offline 3D workstation. Stenoses are assessed in accordance with NASCET criteria unless otherwise indicated. This CT examination was performed using dose optimization techniques as appropriate, variously including the following: *Automated exposure control *Adjustment of mA and/or kV according to patient size (this includes techniques or standardized protocols for targeted exams where dose is matched to indication/reason for exam; i.e. extremities or head) *Use of iterative reconstruction technique DLP: 1683.3 mGy-cm mGy-cm FINDINGS: CT HEAD: Redemonstrated moderate generalized parenchymal volume loss. Incidental cavum septum lucidum. Mild chronic microangiopathy with multiple chronic lacunar infarcts in the deep herrera nuclei. New but chronic-appearing infarct within the right aspect of the body of the corpus callosum redemonstrated chronic lacunar infarcts in the right cerebellum. No intracranial hemorrhage. No pathologic intra-axial enhancement within limitations of CT or regional oligemia. The orbits are grossly normal. 5 mm pedunculated osteoma versus hypertrophic bone along the posterior wall of the right maxillary sinus. The mastoid air cells are well aerated. Osseous structures are intact. CTA HEAD: Significantly limited examination due to extensive venous contamination. 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 Mild stenosis along the mid right intradural vertebral artery. Multifocal mild to moderate stenoses along the basilar artery and mildly narrowed caliber of the mid to distal basilar artery. Short segment occlusion of the right proximal P2 SOFTWARE TOOLS DEVELOPER with reconstitution of the more distal right P2 segment. There is occlusion of the distal left P2 SOFTWARE TOOLS DEVELOPER with attenuated distal left SOFTWARE TOOLS DEVELOPER complex branches. Calcific plaque along the bilateral carotid siphons without significant luminal stenosis. There is a 1.5 mm inferiorly projecting vascular protrusion arising from the left paraclinoid internal carotid artery which may reflect an infundibular origin versus saccular aneurysm. Multifocal severe stenoses along the right A1 segment, most pronounced proximally. There are multiple mild to moderate stenoses along the left greater than right MCA complexes, with a poststenotic dilatation/ectasia at the right MCA bifurcation. No high flow vascular malformations. No evidence of dural arteriovenous fistula. Timing of the contrast bolus allows assessment of the major dural venous sinuses, which all opacify normally CTA NECK: Ectasia of the ascending aorta up to 3.9 cm and dilated main pulmonary artery up to 3.0 cm, noting motion artifact limits assessment. Classic 3 vessel branching pattern of the aortic arch. Mild fibrofatty and calcific plaque in the aortic arch and great vessel origins, which remain widely patent. The common carotid arteries are patent with predominantly fibrofatty plaque at the left greater than right, carotid bifurcations without significant luminal narrowing of the internal carotid arteries, though resulting in mild luminal narrowing of the left external carotid artery origin. The right vertebral artery is dominant. The vertebral artery ostia are widely patent. The right vertebral artery is patent throughout its course. ML opacification of the left vertebral artery from its origin to the distal V2 segment with a diminutive and attenuated V3 segment with luminal irregularity suspicious for age indeterminate dissection. CT NECK: The patient is edentulous. Asymmetric soft tissue fullness in the region of the right palatine tonsillar fossa/right oropharynx, incompletely characterized. Atrophic appearance of the left greater than right submandibular gland.The thyroid gland is unremarkable. No pathologically enlarged cervical chain lymph nodes. 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 Posttraumatic nuchal ligamentous calcifications. The visualized lung apices and upper mediastinum are within normal limits. Status post median sternotomy and CABG. CT/CT angio head neck IMPRESSION: 1. Mild chronic microangiopathy and multiple chronic lacunar infarcts in the deep herrera nuclei. New but chronic-appearing infarct within the right aspect of the body of the corpus callosum. 2. Short segment occlusion of the right SOFTWARE TOOLS DEVELOPER at the proximal P2 segment with reconstitution of the P2 segment more distally. Occlusion of the distal left P2 SOFTWARE TOOLS DEVELOPER with attenuated distal left SOFTWARE TOOLS DEVELOPER branches. 3. 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 4. Multifocal intracranial stenoses likely on the basis of atherosclerosis, most pronounced and severe along the right A1 JUAN. 5. Asymmetric soft tissue fullness in the region of the right palatine tonsillar fossa/right oropharynx, incompletely characterized and can be correlated with direct visual inspection. 6. Ectasia of the ascending aorta and main pulmonary artery. Findings were communicated to Dr. Salcido on 04/25/2022 at 00:53.
--- NOTE | 2022-04-24 19:57 | ECG_ITS ---
Test Reason : ?STROKE Blood Pressure : / mmHG Vent. Rate : 061 BPM Atrial Rate : 061 BPM P-R Int : 192 ms QRS Dur : 100 ms QT Int : 428 ms P-R-T Axes : -03 -50 023 degrees QTc Int : 430 ms Normal sinus rhythm Left axis deviation cannot exclude old inferior infarct Possible Anterior infarct , age undetermined Abnormal ECG When compared with ECG of 22-MAY-2021 12:50, No significant changes seen Referred By: Jim Salcido Electronically Signed By:RJ MCKEON
[2022-04-24 20:01] VITALS: BP 168/90; BP 216/90; PULSE 60; PULSE 89; RESP 17; TEMP 37.3; O2SAT 98; O2SAT 99; BMI 25.7
[2022-04-24 20:03] LABS: Glucose, Whole Blood 79 mg/dL (60-115)
[2022-04-24 20:05] LABS: Prothrombin Time Whole Bld POC 13.7 sec (11.1-13.5); ~PT, ~INR - Anti Coag Clinic 1.1 (0.9-1.1)
[2022-04-24 20:30] LABS: Basophils Percent Auto 0.1 % (0-2); PLT CLUMP 1; SCAN SMEAR FLAG 1
[2022-04-24 20:32] LABS: Eosinophils Percent Auto 0.1 % (0-4); Hematocrit 38.9 % (42.0-52.0); Hemoglobin 13.1 g/dl (14.0-18.0); Imm Gran Abs Auto 0.04 X10*3/uL (0.00-0.03); Imm Gran Pct Auto 0.6 % (0.0-0.4); Lymphocytes Absolute Auto 2.3 X10*3/uL (1.2-4.9); Lymphocytes Percent Auto 32.6 % (20-40); MANUAL DIFF FLAG SCAN; Mean Corpuscular HGB Conc 33.7 g/dl (31.0-36.0); Mean Corpuscular Hemoglobin 29.6 pg (27.0-33.0); Mean Platelet Volume 10.6 fL (9.4-12.4); Monocytes Absolute Auto 2.5 X10*3/uL (0.1-1.2); Monocytes Percent Auto 34.7 % (2-11); Neutrophils Absolute Auto 2.3 x10*3/uL (2.0-8.3); Neutrophils Percent Auto 31.9 % (45-73); Red Blood Count 4.42 X10*6/uL (4.60-5.80); Red Cell Distribution Width 12.8 % (11.0-16.0)
[2022-04-24 20:33] LABS: Platelet Count 124 X10*3/uL (160-400); White Blood Count 7.2 X10*3/uL (4.8-10.8)
[2022-04-24 20:38] LABS: INTERNATIONAL NORM RATIO 1.2 (0.9-1.1); Prothrombin Time 14.2 SEC (10.0-13.1)
--- NOTE | 2022-04-24 20:40 | ED.NEUROSD ---
HPI - Neuro Symptoms/Deficit General Chief Complaint: Stroke Stated Complaint: stroke alert Time Seen by Provider: 04/24/22 19:57 Source: patient, family (Daughter, Leonila) and EMS Mode of arrival: EMS Limitations: no limitations History of Present Illness HPI Narrative: 86-year-old male who is brought to the emergency department by ambulance for evaluation of difficulty with word finding and altered mental status, patient was called in as a stroke alert by EMS. Information came from EMS, the patient and from the patient's daughter Leonila. The daughter states the patient has had increased forgetfulness over the past year. He has also had increased episodes of falling secondary to his right leg giving out on him. Patient does live alone and is able to care for himself. The patient was on the phone with his other daughter at around 19:00 hours and the daughter noted that the patient kept repeating the same phrase ?I need a discount ?. The daughter was concerned the patient was also having difficulty finding words and called an ambulance since she was concerned that the patient might be having a stroke. On presentation to the emergency department the patient was able to answer questions but lacks insight as to why this here. He did have occasional difficulty with word finding but was able to identify objects. His neurologic exam was nonfocal. Patient was sent to CT scan from the optometrist president/practice owner stretcher. Related Data Home Medications Medication Instructions Recorded Confirmed aspirin 81 mg tablet,delayed 81 mg PO DAILY 03/03/22 03/03/22 release (Adult Low Dose Aspirin) Previous Rx's Medication Instructions Recorded diaper,brief,adult,disposable #48 ea 08/14/21 diaper,brief,adult,disposable #96 ea 08/21/21 (Desiree Shea-Small) metoprolol succinate 25 mg 25 mg PO DAILY 90 days #90 tabs 11/19/21 tablet,extended release 24 hr amlodipine 2.5 mg tablet 2.5 mg PO DAILY 90 days #90 tabs 02/01/22 paroxetine HCl 10 mg tablet 10 mg PO DAILY 30 days #30 tabs 02/05/22 memantine 7 mg capsule 7 mg PO DAILY #30 ea 03/03/22 sprinkle,extended release 24hr (Namenda XR) irbesartan 300 mg tablet 300 mg PO DAILY 90 days #90 tabs 04/20/22 Allergies Allergy/AdvReac Type Severity Reaction Status Date / Time codeine Allergy Mild mild Verified 03/03/22 15:31 Penicillins Allergy Mild mild Verified 03/03/22 15:31 morphine Allergy Unknown unknown Verified 03/03/22 15:31 Review of Systems Review of Systems: Yes all other systems are reviewed and are negative [facility] Past Medical History [facility] Narrative: Past medical history reviewed below hyperlipidemia, coronary disease, prostate cancer. Social history: The patient lives alone. He denies tobacco use but he was a former smoker. He denies alcohol use and drug use. Medical History CAD (coronary artery disease) Cancer of skin of left ear High blood pressure History of prostate cancer HTN (hypertension) Surgical History S/P CABG x 5 Family History Family History Mother High blood pressure Father Heart disease Other Substance use disorder Social History Social History Housing: Other (assisted living) Patient Tobacco Use Status: Former Tobacco user Tobacco use type: Cigarette Smoked in Last 30 Days: No e-Cigarette/Vaping Use: Never Used Second Hand Smoke Exposure: No Use of substances other than those prescribed or required for medical reasons: No Advance Directives: No Advance Directives Information Provided: Yes Current occupational status: retired Cognitive needs: No Hearing needs: No Vision needs: No Physical Exam Vital Signs: Vital Signs: Last Vital Signs Temp 99.1 F 04/24/22 20:01 Pulse 76 04/24/22 21:00 Resp 17 04/24/22 20:01 BP 182/86 H 04/24/22 21:00 Pulse Ox 98 04/24/22 21:00 O2 Del Method 04/24/22 21:00 BMI result Body Mass Index 25.7 Const: Other: Awake, alert, elderly male, pleasant, cooperative does not appear to be in distress HEENT: Head: Yes normal to inspection, Yes normocephalic and Yes atraumatic Ears: external ears normal General nose exam: Normal external nose present Face and sinus: Yes normal facial exam Mouth: Normal oral and palatal mucosa present Throat: Yes posterior oropharynx normal Eyes: General: appearance normal, both eyes and all related structures Neck: Neck: Yes normal visual inspection, Yes no lymphadenopathy, Yes trachea midline and Yes supple Chest: Chest palpation & inspection: normal inspection of the chest and normal palpation of entire chest wall Resp: Effort & Inspection: normal respiratory effort and able to speak in complete sentences Auscultation: clear to auscultation bilaterally Cardio: Rate: regular rate Rhythm: regular rhythm Heart sounds: S1 normal heart sound present, S2 normal heart sound present and no murmurs GI: Inspection: Yes normal to inspection Palpation (GI): Soft to palpation, nontender and no guarding Auscultation: normal bowel sounds : General: Yes no CVA tenderness Back/Spine/Pelvis: Back: no CVA tenderness Skin: General skin exam: no rashes or lesions noted Neuro: Other: Cranial nerves 2-12 are intact, strength symmetric bilaterally, oriented person place. Patient does have some difficulty with word finding, he was able to tell me his daughter's name but was having difficulty stated that she was his daughter. Extrem: General: Yes normal to inspection Psych: Appearance: grossly normal Speech and movement: Normal speech and movement present Affect: normal affect Medical Decision Making Medical Decision Making MDM Narrative: 86-year-old male who was sent to emergency department by ambulance by his daughter who was concerned that the patient was having difficulty with word finding and had a change in mental status while she was talking to him on the phone around 19:00 hours. The patient lives left and there is no last known well time. The patient's daughter that is in the emergency department, states that the patient has been more forgetful over the past year and has been having frequent falls secondary to his right leg giving out on him. The patient did appear to have some word-finding issues consistent with a mild expressive aphasia, is exam was otherwise unremarkable. The patient was sent directly to the CT scan from the optometrist president/practice owner stretcher and I did order laboratory evaluation. My independent interpretation patient's laboratory evaluation is as follows. Mild anemia with an H&H of 13.1 and 38.9-this is chronic. Patient's platelet count is low 124,000-this is chronic. INR was elevated 1.2. PTT elevated 37.8. BUN elevated 18. Urinalysis was negative. ETOH level was below detectable limits. The patient's 12 EKG was unremarkable. Chest x-ray was unremarkable. CT scan of the brain without IV contrast did not reveal any acute stroke, the patient does have a lacunar infarct which is new compared to the previous CT scan but did not think that this is caused his symptoms. Given his word-finding difficulty and concerned that he has a mild expressive aphasia any may have had a new stroke. The patient last well-known time is unknown and his NIH stroke scale is only 1 therefore he is not a candidate for tPA. I did discuss the patient's presentation with the covering hospitalist, Dr. Aguero and the patient will be admitted for further evaluation of his symptoms. Differential Diagnosis Differential diagnosis includes was not limited to stroke, TIA, electrolyte abnormality, urinary tract infection Consult Healthcare Provider Management of the patient was discussed with: Hospitalist Lab Data [facility] Lab Attestation statement: I reviewed the patient's lab results. Please see [facility] for my discussion 04/24/22 20:25 04/24/22 20:25 Labs: Lab Results 04/24/22 04/24/22 04/24/22 Range/Units 19:58 19:59 20:25 WBC 7.2 (4.8-10.8) X10*3/uL RBC 4.42 L (4.60-5.80) X10*6/uL Hgb 13.1 L (14.0-18.0) g/dl Hct 38.9 L (42.0-52.0) % MCV 88.0 (80.0-98.0) fL MCH 29.6 (27.0-33.0) pg MCHC 33.7 (31.0-36.0) g/dl RDW 12.8 (11.0-16.0) % Plt Count 124 L (160-400) X10*3/uL MPV 10.6 (9.4-12.4) fL Immature Gran % (Auto) 0.6 H (0.0-0.4) % Neut % (Auto) 31.9 L (45-73) % Lymph % (Auto) 32.6 (20-40) % [place] % (Auto) 34.7 H (2-11) % Eos % (Auto) 0.1 (0-4) % Baso % (Auto) 0.1 (0-2) % Lymph # (Auto) 2.3 (1.2-4.9) X10*3/uL [place] # (Auto) 2.5 H (0.1-1.2) X10*3/uL Eos # (Auto) 0.0 (0.0-0.4) X10*3/uL Baso # (Auto) 0.0 (0.0-0.2) X10*3/uL Abs Immat Gran (auto) 0.04 H (0.00-0.03) X10*3/uL Absolute Neuts (auto) 2.3 (2.0-8.3) x10*3/uL Absolute Nucleated RBC 0.000 (0.0-0.012) X10*3/uL Nucleated RBC % (auto) 0.0 (0.0-0.2) /100WBC Smear Tech's Comments VERIFIED PT (10.0-13.1) SEC Whole Blood PT 13.7 H (11.1-13.5) sec INR (0.9-1.1) Whole Blood INR 1.1 (0.9-1.1) APTT (26.0-36.4) SEC Sodium (135-145) mmol/L Potassium (3.3-5.1) mmol/L Chloride (96-108) mmol/L Carbon Dioxide (22-29) mmol/L Anion Gap (12-20) BUN (9-16) mg/dL Creatinine (0.5-1.4) mg/dL Estim Creat Clear Calc Estimated GFR POC Glucose 79 (60-115) mg/dL Random Glucose (60-115) mg/dL Calcium (8.4-10.2) mg/dL Magnesium (1.6-2.6) mg/dL Total Bilirubin (0.0-1.0) mg/dL Direct Bilirubin (0.0-0.5) mg/dL AST (5-37) U/L ALT (0-40) U/L Alkaline Phosphatase (39-117) U/L Total Creatine Kinase (38-174) U/L Troponin I High Sens (<3.5-35.0) ng/L Total Protein (6.5-8.0) g/dL Albumin (3.5-5.0) g/dL Urine Color Urine Appearance Urine pH (5.0-9.0) Ur Specific [place] (1.005-1.025) Urine Protein (Neg-Trace) mg/dL Urine Glucose (UA) (Negative) mg/dL Urine Ketones (Negative) mg/dL Urine Blood (Negative) Urine Nitrite (Negative) Ur Leukocyte Esterase (Negative) Ethyl Alcohol mg/dL 04/24/22 04/24/22 04/24/22 Range/Units 20:25 20:25 20:25 WBC (4.8-10.8) X10*3/uL RBC (4.60-5.80) X10*6/uL Hgb (14.0-18.0) g/dl Hct (42.0-52.0) % MCV (80.0-98.0) fL MCH (27.0-33.0) pg MCHC (31.0-36.0) g/dl RDW (11.0-16.0) % Plt Count (160-400) X10*3/uL MPV (9.4-12.4) fL Immature Gran % (Auto) (0.0-0.4) % Neut % (Auto) (45-73) % Lymph % (Auto) (20-40) % [place] % (Auto) (2-11) % Eos % (Auto) (0-4) % Baso % (Auto) (0-2) % Lymph # (Auto) (1.2-4.9) X10*3/uL [place] # (Auto) (0.1-1.2) X10*3/uL Eos # (Auto) (0.0-0.4) X10*3/uL Baso # (Auto) (0.0-0.2) X10*3/uL Abs Immat Gran (auto) (0.00-0.03) X10*3/uL Absolute Neuts (auto) (2.0-8.3) x10*3/uL Absolute Nucleated RBC (0.0-0.012) X10*3/uL Nucleated RBC % (auto) (0.0-0.2) /100WBC Smear Tech's Comments PT 14.2 H (10.0-13.1) SEC Whole Blood PT (11.1-13.5) sec INR 1.2 H (0.9-1.1) Whole Blood INR (0.9-1.1) APTT 37.8 H (26.0-36.4) SEC Sodium 140 (135-145) mmol/L Potassium 4.5 (3.3-5.1) mmol/L Chloride 103 (96-108) mmol/L Carbon Dioxide 29 (22-29) mmol/L Anion Gap 13 (12-20) BUN 18 H (9-16) mg/dL Creatinine 1.03 (0.5-1.4) mg/dL Estim Creat Clear Calc 50.7 Estimated GFR > 60 POC Glucose (60-115) mg/dL Random Glucose 90 (60-115) mg/dL Calcium 9.1 (8.4-10.2) mg/dL Magnesium 2.0 (1.6-2.6) mg/dL Total Bilirubin 0.7 (0.0-1.0) mg/dL Direct Bilirubin 0.2 (0.0-0.5) mg/dL AST 21 (5-37) U/L ALT 11 (0-40) U/L Alkaline Phosphatase 56 (39-117) U/L Total Creatine Kinase 73 (38-174) U/L Troponin I High Sens 3.5 (<3.5-35.0) ng/L Total Protein 7.6 (6.5-8.0) g/dL Albumin 4.3 (3.5-5.0) g/dL Urine Color Urine Appearance Urine pH (5.0-9.0) Ur Specific [place] (1.005-1.025) Urine Protein (Neg-Trace) mg/dL Urine Glucose (UA) (Negative) mg/dL Urine Ketones (Negative) mg/dL Urine Blood (Negative) Urine Nitrite (Negative) Ur Leukocyte Esterase (Negative) Ethyl Alcohol < 10 mg/dL 04/24/22 Range/Units 21:59 WBC (4.8-10.8) X10*3/uL RBC (4.60-5.80) X10*6/uL Hgb (14.0-18.0) g/dl Hct (42.0-52.0) % MCV (80.0-98.0) fL MCH (27.0-33.0) pg MCHC (31.0-36.0) g/dl RDW (11.0-16.0) % Plt Count (160-400) X10*3/uL MPV (9.4-12.4) fL Immature Gran % (Auto) (0.0-0.4) % Neut % (Auto) (45-73) % Lymph % (Auto) (20-40) % [place] % (Auto) (2-11) % Eos % (Auto) (0-4) % Baso % (Auto) (0-2) % Lymph # (Auto) (1.2-4.9) X10*3/uL [place] # (Auto) (0.1-1.2) X10*3/uL Eos # (Auto) (0.0-0.4) X10*3/uL Baso # (Auto) (0.0-0.2) X10*3/uL Abs Immat Gran (auto) (0.00-0.03) X10*3/uL Absolute Neuts (auto) (2.0-8.3) x10*3/uL Absolute Nucleated RBC (0.0-0.012) X10*3/uL Nucleated RBC % (auto) (0.0-0.2) /100WBC Smear Tech's Comments PT (10.0-13.1) SEC Whole Blood PT (11.1-13.5) sec INR (0.9-1.1) Whole Blood INR (0.9-1.1) APTT (26.0-36.4) SEC Sodium (135-145) mmol/L Potassium (3.3-5.1) mmol/L Chloride (96-108) mmol/L Carbon Dioxide (22-29) mmol/L Anion Gap (12-20) BUN (9-16) mg/dL Creatinine (0.5-1.4) mg/dL Estim Creat Clear Calc Estimated GFR POC Glucose (60-115) mg/dL Random Glucose (60-115) mg/dL Calcium (8.4-10.2) mg/dL Magnesium (1.6-2.6) mg/dL Total Bilirubin (0.0-1.0) mg/dL Direct Bilirubin (0.0-0.5) mg/dL AST (5-37) U/L ALT (0-40) U/L Alkaline Phosphatase (39-117) U/L Total Creatine Kinase (38-174) U/L Troponin I High Sens (<3.5-35.0) ng/L Total Protein (6.5-8.0) g/dL Albumin (3.5-5.0) g/dL Urine Color Yellow Urine Appearance Cloudy Urine pH 7.5 (5.0-9.0) Ur Specific [place] 1.010 (1.005-1.025) Urine Protein Negative (Neg-Trace) mg/dL Urine Glucose (UA) Negative (Negative) mg/dL Urine Ketones Negative (Negative) mg/dL Urine Blood Negative (Negative) Urine Nitrite Negative (Negative) Ur Leukocyte Esterase Negative (Negative) Ethyl Alcohol mg/dL Independent Interpretation I performed an independent interpretation of an: EKG and Plain X-Ray Interpretation: My independent review of the patient's 12 EKG done and 209 is as follows: Normal sinus rhythm with a rate of 61, normal AK interval, prolonged QRS interval 100 milliseconds, normal QTC 430 milliseconds, Q-wave in lead 3, no ST segment elevation, no ST segment depression, poor R-wave progression from V1 to V3, no PACs, no PVCs My independent of patient's chest x-ray is as follows: No acute disease Radiology Impression Discussion of test interpretation with radiology: I have reviewed the radiologist's reading. Radiologist Impression: XR chest 1V IMPRESSION: 1. No focal infiltrate or pneumothorax. 2. Unchanged trace amount of right-sided pleural fluid and pleural thickening. Dictated By:Flavio Senaed By:<Electronically signed by Cait Sena in [place]>04/24/222013 CT head for stroke IMPRESSION: 1. Age-indeterminate small hypodensities, new compared to 09/26/2021. If an acute cerebrovascular accident is clinically suspected, consider correlation with an MR of the brain. 2. No evidence of acute intracranial hemorrhage or edematous territorial infarction. 3. 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 This critical result was discussed with Dr. Salcido at 04/24/2022 8:27 PM and it was ascertained that the content and urgency of the report was understood at the time of direct communication. Dictated By:Flavio Senaed By:<Electronically signed by Cait Sena in [place]>04/24/222027 NIH Stroke Scale Internal: Initial- Upon Arrival Level of Consciousness: Alert Level of Consciousness Questions: Answers both questions correctly Level of Consciousness Commands: Performs both tasks correctly Best Gaze: Normal Visual: No visual loss Facial Palsy: Normal Motor Arm (Right): No drift Motor Arm (Left): No drift Motor Leg (Right): No drift Motor Leg (Left): No drift Limb Ataxia: Absent Sensory: Normal Best Language: Mild to moderate aphasia Dysarthia: Normal Extinction and Inattention: No abnormality Score: 1 Discharge Plan Discharge Prescriptions: No Action (DME) Desiree Shea-Small Misc See Rx Instructions .Route Qty: 96 0RF Rx Instructions: change 3 times daily metoprolol succinate 25 mg tablet extended release 24 hr 25 mg PO DAILY 90 Days Qty: 90 0RF amlodipine 2.5 mg tablet 2.5 mg PO DAILY 90 Days Qty: 90 0RF paroxetine HCl 10 mg tablet 10 mg PO DAILY 30 Days Qty: 30 2RF irbesartan 300 mg tablet 300 mg PO DAILY 90 Days Qty: 90 0RF (DME) diaper,brief,adult,disposable Misc See Rx Instructions .MEDSUPPLY Qty: 48 5RF Rx Instructions: As directed - 2 per day aspirin [Adult Low Dose Aspirin] 81 mg tablet,delayed release (DR/EC) 81 mg PO DAILY memantine [Namenda XR] 7 mg capsule,sprinkle,ER 24hr 7 mg PO DAILY Qty: 30 6RF
[2022-04-24 20:41] LABS: Partial Thromboplastin Time 37.8 SEC (26.0-36.4)
[2022-04-24 20:46] LABS: Alanine Aminotransferase 11 U/L (0-40); Albumin Level 4.3 g/dL (3.5-5.0); Alkaline Phosphatase 56 U/L (39-117); Anion Gap 13 (12-20); Aspartate Amino Transferase 21 U/L (5-37); Bilirubin Direct 0.2 mg/dL (0.0-0.5); Bilirubin Total 0.7 mg/dL (0.0-1.0); Blood Urea Nitrogen 18 mg/dL (9-16); Calcium 9.1 mg/dL (8.4-10.2); Carbon Dioxide 29 mmol/L (22-29); Chloride 103 mmol/L (96-108); Creatinine Clr Calc Pharmacy 50.7; Estimated Glomerular Filt Rate > 60; Ethanol < 10 mg/dL; Glucose Random 90 mg/dL (60-115); Potassium 4.5 mmol/L (3.3-5.1); Sodium 140 mmol/L (135-145); Total Protein 7.6 g/dL (6.5-8.0)
[2022-04-24 20:51] LABS: Troponin-I High Sensitivity 3.5 ng/L (<3.5-35.0)
[2022-04-24 20:58] LABS: SLIDE REVIEW VERIFIED
[2022-04-24 21:00] VITALS: BP 182/86; PULSE 76; O2SAT 98
[2022-04-24 21:03] LABS: Stroke Lab Use COMPLETE
[2022-04-24 22:07] LABS: Appearance Urine Cloudy; Color Urine Yellow; Glucose Urine UA Negative (Negative); Leukocyte Esterase Urine Negative (Negative); Nitrite Urine Negative (Negative); PH 7.5 (5.0-9.0); Urine Blood Negative (Negative); Urine Ketones Negative (Negative); Urine Protein Negative (Neg-Trace)
--- NOTE | 2022-04-24 23:33 | P.HPHOSP_ITS ---
History of Present Illness Date of Service: 04/24/22 Chief Complaint: Stroke 86-year-old male with past medical history of CAD status post CABG, HTN, prostate cancer depression, who comes into the hospital for evaluation of stroke. Patient is alert, but unable to assess for orientation as patient is aphasic, he seems to understand my question but responds with nonsensical words that do not match the question. Seems that he is having difficulty finding words. According to the daughter at bedside patient usually lives alone. They received a call from him this afternoon seeming confused, not making any sens e,knows his daughter's name but does not recognize her as his daughter, therefore was brought into the hospital. Unable to assess for review of system is patient is unable to answer appropriately. On arrival to the ED patient hemodynamically stable with BP of 216/90 Labs are significant for WBC count of 7.2, hemoglobin 13.1, hematocrit 38 point now which is around his baseline, INR of 1.2, labs otherwise unremarkable, Head CT shows an age-indeterminate small hypodensity which is new from August of 2021, no evidence of acute intracranial hemorrhage or adematous territorial infarct, chronic microangiopathic and generalized cerebral volume loss Patient will be admitted for further management Review of Systems Review of Systems: Yes Unobtainable due to mental condition PMFSH Medical History CAD (coronary artery disease) Cancer of skin of left ear High blood pressure History of prostate cancer HTN (hypertension) Family History Mother High blood pressure Father Heart disease Other Substance use disorder Surgical History S/P CABG x 5 Social History Housing: Other (assisted living) Patient Tobacco Use Status: Former Tobacco user Tobacco use type: Cigarette Smoked in Last 30 Days: No e-Cigarette/Vaping Use: Never Used Second Hand Smoke Exposure: No Use of substances other than those prescribed or required for medical reasons: No Advance Directives: No Advance Directives Information Provided: Yes Current occupational status: retired Cognitive needs: No Hearing needs: No Vision needs: No Meds Allergies Allergy/AdvReac Type Severity Reaction Status Date / Time codeine Allergy Mild mild Verified 03/03/22 15:31 Penicillins Allergy Mild mild Verified 03/03/22 15:31 morphine Allergy Unknown unknown Verified 03/03/22 15:31 Home Medications Medication Instructions Recorded Confirmed Last Taken Type aspirin 81 mg tablet,delayed 81 mg PO DAILY 03/03/22 03/03/22 Unknown History release (Adult Low Dose Aspirin) Physical Exam Vital Signs and Narrative: Vital Signs: Last Vital Signs Temp 99.1 F 04/24/22 20:01 Pulse 76 04/24/22 21:00 Resp 17 04/24/22 20:01 BP 182/86 H 04/24/22 21:00 Pulse Ox 98 04/24/22 21:00 O2 Del Method 04/24/22 21:00 BMI result Body Mass Index 25.7 Const: Other: Alert, awake, unable to assess for orientation General: cooperative and no acute distress Eyes: General: appearance normal, both eyes and all related structures Resp: Effort & Inspection: normal respiratory effort Auscultation: clear to auscultation bilaterally Cardio: Rate: regular rate Rhythm: regular rhythm GI: Palpation (GI): Soft to palpation Auscultation: normal bowel sounds Skin: General skin exam: no rashes or lesions noted Neuro: Other: Slight Right facial droop Cranial nerves 2-12 intact Strength 5/5 in upper extremities, 3/5 in the left lower extremity Extrem: General: Yes no pedal edema Results Labs 04/24/22 20:25 04/24/22 20:25 Labs: Laboratory Results - last 24 hr 04/24/22 04/24/22 04/24/22 19:58 19:59 20:25 MCV 88.0 MCH 29.6 MCHC 33.7 RDW 12.8 Plt Count 124 L MPV 10.6 Immature Gran % (Auto) 0.6 H Neut % (Auto) 31.9 L Lymph % (Auto) 32.6 [place] % (Auto) 34.7 H Eos % (Auto) 0.1 Baso % (Auto) 0.1 Lymph # (Auto) 2.3 [place] # (Auto) 2.5 H Eos # (Auto) 0.0 Baso # (Auto) 0.0 Abs Immat Gran (auto) 0.04 H Absolute Neuts (auto) 2.3 Absolute Nucleated RBC 0.000 Nucleated RBC % (auto) 0.0 Smear Tech's Comments VERIFIED PT Whole Blood PT 13.7 H INR Whole Blood INR 1.1 APTT Anion Gap Estim Creat Clear Calc Estimated GFR POC Glucose 79 Random Glucose Calcium Magnesium Total Bilirubin Direct Bilirubin AST ALT Alkaline Phosphatase Total Creatine Kinase Troponin I High Sens Total Protein Albumin Urine Color Urine Appearance Urine pH Ur Specific [place] Urine Protein Urine Glucose (UA) Urine Ketones Urine Blood Urine Nitrite Ur Leukocyte Esterase Ethyl Alcohol 04/24/22 04/24/22 04/24/22 20:25 20:25 20:25 MCV MCH MCHC RDW Plt Count MPV Immature Gran % (Auto) Neut % (Auto) Lymph % (Auto) [place] % (Auto) Eos % (Auto) Baso % (Auto) Lymph # (Auto) [place] # (Auto) Eos # (Auto) Baso # (Auto) Abs Immat Gran (auto) Absolute Neuts (auto) Absolute Nucleated RBC Nucleated RBC % (auto) Smear Tech's Comments PT 14.2 H Whole Blood PT INR 1.2 H Whole Blood INR APTT 37.8 H Anion Gap 13 Estim Creat Clear Calc 50.7 Estimated GFR > 60 POC Glucose Random Glucose 90 Calcium 9.1 Magnesium 2.0 Total Bilirubin 0.7 Direct Bilirubin 0.2 AST 21 ALT 11 Alkaline Phosphatase 56 Total Creatine Kinase 73 Troponin I High Sens 3.5 Total Protein 7.6 Albumin 4.3 Urine Color Urine Appearance Urine pH Ur Specific [place] Urine Protein Urine Glucose (UA) Urine Ketones Urine Blood Urine Nitrite Ur Leukocyte Esterase Ethyl Alcohol < 10 04/24/22 21:59 MCV MCH MCHC RDW Plt Count MPV Immature Gran % (Auto) Neut % (Auto) Lymph % (Auto) [place] % (Auto) Eos % (Auto) Baso % (Auto) Lymph # (Auto) [place] # (Auto) Eos # (Auto) Baso # (Auto) Abs Immat Gran (auto) Absolute Neuts (auto) Absolute Nucleated RBC Nucleated RBC % (auto) Smear Tech's Comments PT Whole Blood PT INR Whole Blood INR APTT Anion Gap Estim Creat Clear Calc Estimated GFR POC Glucose Random Glucose Calcium Magnesium Total Bilirubin Direct Bilirubin AST ALT Alkaline Phosphatase Total Creatine Kinase Troponin I High Sens Total Protein Albumin Urine Color Yellow Urine Appearance Cloudy Urine pH 7.5 Ur Specific [place] 1.010 Urine Protein Negative Urine Glucose (UA) Negative Urine Ketones Negative Urine Blood Negative Urine Nitrite Negative Ur Leukocyte Esterase Negative Ethyl Alcohol Imaging Radiologist's Impressions: Impressions Head CT 04/24/22 20:00 IMPRESSION: 1. Age-indeterminate small hypodensities, new compared to 09/26/2021. If an acute cerebrovascular accident is clinically suspected, consider correlation with an MR of the brain. 2. No evidence of acute intracranial hemorrhage or edematous territorial infarction. 3. 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 This critical result was discussed with Dr. Salcido at 04/24/2022 8:27 PM and it was ascertained that the content and urgency of the report was understood at the time of direct communication. Chest X-Ray 04/24/22 20:05 IMPRESSION: 1. No focal infiltrate or pneumothorax. 2. Unchanged trace amount of right-sided pleural fluid and pleural thickening. Assessment and Plan (1) Aphasia: Status: Acute (2) Dysarthria: Status: Acute (3) CVA (cerebral vascular accident): Status: Acute Plan This is a 86-year-old male with past medical history of hypertension, CAD, CABG presents to the hospital with evidence of stroke/CVA # acute aphasia and some dysarthria - likely secondary to acute CVA - will obtain head CT angiogram as well as neck angiogram - MRI in a.m. - neurology consulted - PT OT - aspirin, high statin # hypertension - elevated - will allow permissive hypertension - hold antihypertensives # CAD - continue aspirin, and metoprolol # baseline dementia - continue memantine DVT prophylaxis: Lovenox Time Spent With Patient Time: Total time managing care of this patient today ____ minutes. Quality Stroke Does the patient have a stroke diagnosis?: No VTE Prior VTE?: No VTE Risk Level:: Medical - moderate - high VTE Device Contraindication: Treatment Not Indicated VTE Drug Contraindication: N/A - Med Ordered
[2022-04-25] VITALS (7 sets, daily range): BP systolic 147–206; BP diastolic 72–89; PULSE 60–95; RESP 12–18; TEMP 36.6–37.2; O2SAT 94–97; BMI 24.6
[2022-04-25] MEDS: iohexoL 350 MG/ML 100 ML INFUS..BTL 70 ML IV (00:20)
[2022-04-25] MEDS: Enoxaparin Sodium 40 MG/0.4 ML SYRINGE SUBCUT ×2 (00:47→22:29)
[2022-04-25] MEDS: 0.9 % Sodium Chloride Flush 3 ML SYRINGE IVFLUSH ×3 (00:48→20:00)
--- NOTE | 2022-04-25 01:04 | PC.NURSE ---
Dr. Zavala informed of high BP readings ranging 187-219/100-112, P 61-65, O2 Sat 95-97%. Patient asymptomatic, he denies headache, no vision changes, denies pain in the back of his neck. Per Dr. Zavala continue to monitor BP, no interventions at this time d/t permissive hypertension.
[2022-04-25 01:07] LABS: IDNOW Serial# BCCEAD1C; Influenza A Negative (Negative); Influenza B2 Negative (Negative)
[2022-04-25 01:08] LABS: COVID-19 Test Negative (Negative); IDNOW Serial# 16C4AD1C
--- NOTE | 2022-04-25 01:23 | PC.NURSE ---
Patient is alert, oriented to self and his daughter. Patient is not able to make his needs known d/t confusion. Patient is incontinent, plan to apply [place] catheter to prevent skin irritation and breakdown. Swallow eval competed by this RN, patient passed swallow eval. Patient medicated per APR. 20 G IV line in Left forearm flashed per APR, line is patent, insertion site is unremarkable.
[2022-04-25 06:55] LABS: Eosinophils Percent Auto 0.3 % (0-4); Hematocrit 35.6 % (42.0-52.0); Hemoglobin 12.1 g/dl (14.0-18.0); Imm Gran Abs Auto 0.04 X10*3/uL (0.00-0.03); Imm Gran Pct Auto 0.6 % (0.0-0.4); MANUAL DIFF FLAG SCAN; Mean Corpuscular Volume 88.3 fL (80.0-98.0); Mean Platelet Volume 10.9 fL (9.4-12.4); Monocytes Absolute Auto 2.7 X10*3/uL (0.1-1.2); Monocytes Percent Auto 40.6 % (2-11); Neutrophils Absolute Auto 1.9 x10*3/uL (2.0-8.3); Neutrophils Percent Auto 28.5 % (45-73); Platelet Count 120 X10*3/uL (160-400); Red Blood Count 4.03 X10*6/uL (4.60-5.80); Red Cell Distribution Width 12.8 % (11.0-16.0); SCAN SMEAR FLAG 1; White Blood Count 6.5 X10*3/uL (4.8-10.8)
[2022-04-25 07:14] LABS: SLIDE REVIEW VERIFIED
--- NOTE | 2022-04-25 07:19 | PC.NURSE ---
assumed care of patient, pt aox3, calm and cooperative, VSS, awaiting inpt bed and MRI
--- NOTE | 2022-04-25 07:38 | PC.NURSE ---
pt cleaned, repositioned, set up with breakfast tray
[2022-04-25 07:41] LABS: Alanine Aminotransferase 10 U/L (0-40); Albumin Level 3.5 g/dL (3.5-5.0); Alkaline Phosphatase 54 U/L (39-117); Anion Gap 9 (12-20); Aspartate Amino Transferase 16 U/L (5-37); Bilirubin Total 0.9 mg/dL (0.0-1.0); Blood Urea Nitrogen 15 mg/dL (9-16); Calcium 8.5 mg/dL (8.4-10.2); Carbon Dioxide 30 mmol/L (22-29); Chloride 106 mmol/L (96-108); Cholesterol 146 mg/dL; Estimated Glomerular Filt Rate > 60; Glucose Random 95 mg/dL (60-115); HDL Cholesterol 31 mg/dL; LDL Cholesterol Calculated 104 mg/dl; Potassium 4.1 mmol/L (3.3-5.1); Sodium 141 mmol/L (135-145); Total Protein 6.4 g/dL (6.5-8.0); Triglycerides 55 mg/dL
[2022-04-25] MEDS: Aspirin Enteric Coated 81 MG TABLET.DR PO (08:08)
[2022-04-25] MEDS: Atorvastatin Calcium 80 MG TABLET PO (08:08)
--- NOTE | 2022-04-25 10:49 | PHA.MEDREC ---
Pharmacy Consult ? Medication Reconciliation Pharmacy has completed the medication reconciliation. Spoke to patient's daughter via telephone and confirmed meds. Patient said to not be currently taking anything for depression or mood, just blood pressure, a multivitamin, and aspirin 81mg.
--- NOTE | 2022-04-25 10:57 | MHC.CM.PN ---
Patient has a diagnosis of Expressive Aphasia and Memory Deficit; CM spoke with Primary Contact/Granddaughter/Aggie @ [phone] and addressed GARCIA with her (original will be mailed certified mail to Aggie and a copy will be placed on the chart). Patient has been living alone in an apartment, using a walker, and receiving [facility] services; per Aggie, STR is the goal and Patient may benefit from a PT eval. CM has initiated and will follow for dc planning. Patient has received Covid vax x4 and his PCP is Dr. Justin Roman.
--- NOTE | 2022-04-25 12:03 | P.PNIM_ITS ---
Subjective Subjective Date of Service: 04/25/22 Interval History: seen and examined this morning follow up for aphasia patient awake, alert, attempts to answer questions but correct words do not come out most of the time; able to answer some yes/no questions appropriately or shake head able to follow commands unable to obtain ROS due to aphasia Review of Systems Review of Systems: Yes Unobtainable due to mental condition Physical Exam Vital Signs: Vital Signs: Last Vital Signs Temp 98.0 F 04/25/22 08:11 Pulse 95 04/25/22 08:11 Resp 16 04/25/22 08:11 BP 160/85 H 04/25/22 08:11 Pulse Ox 96 04/25/22 08:11 O2 Del Method 04/25/22 08:11 BMI result Body Mass Index 25.7 Const: Other: awake, alert, resting in bed, appears comfortable unable to assess orientation due to aphasia Resp: Effort & Inspection: normal respiratory effort, no respiratory distress and no use of accessory muscles Auscultation: clear to auscultation bilaterally Cardio: Rate: regular rate Heart sounds: S1 normal heart sound present and S2 normal heart sound present GI: Inspection: No distended Palpation (GI): Soft to palpation Neuro: Other: able to follow all commands. tongue midline, face symmetrical. hand grasp equal bilaterally; UE/LE strength equal bilaterally; aphasic Extrem: General: Yes no pedal edema Objective Data Active Medications Acetaminophen (Acetaminophen 325 Mg Tablet) 650 mg PO Q6H PRN PRN Reason: Pain, Mild (Pain Scale 1-3) Aspirin (Aspirin Enteric Coated 81 Mg Tablet.) 81 mg PO DAILY [facility] Last Admin: 04/25/22 08:08 Dose: 81 mg Documented By: ESEQUIEL Atorvastatin Calcium (Atorvastatin Calcium 80 Mg Tablet) 80 mg PO DAILY [facility] Last Admin: 04/25/22 08:08 Dose: 80 mg Documented By: ESEQUIEL Docusate Sodium (Docusate Sodium 100 Mg Capsule) 100 mg PO DAILY PRN PRN Reason: Constipation Enoxaparin Sodium (Enoxaparin Sodium 40 Mg/0.4 Ml Syringe) 40 mg SUBCUT Q24H [facility] Last Admin: 04/25/22 00:47 Dose: 40 mg Documented By: KEIRA Melatonin (Melatonin 3 Mg Tablet) 6 mg PO BEDTIME PRN PRN Reason: Insomnia Ondansetron HCl (Ondansetron Hcl 4 Mg/2 Ml Vial) 4 mg IVPUSH Q8H PRN PRN Reason: Nausea and Vomiting Sodium Chloride (0.9 % Sodium Chloride Flush 3 Ml Syringe) 3 ml IVFLUSH QSHIFT LISS Last Admin: 04/25/22 07:31 Dose: Not Given Documented By: ESEQUIEL Non-Admin Reason: IV Running Labs 04/25/22 06:43 04/25/22 06:43 Labs: Laboratory Results - last 24 hr 04/24/22 04/24/22 04/24/22 19:58 19:59 20:25 MCV 88.0 MCH 29.6 MCHC 33.7 RDW 12.8 Plt Count 124 L MPV 10.6 Immature Gran % (Auto) 0.6 H Neut % (Auto) 31.9 L Lymph % (Auto) 32.6 [place] % (Auto) 34.7 H Eos % (Auto) 0.1 Baso % (Auto) 0.1 Lymph # (Auto) 2.3 [place] # (Auto) 2.5 H Eos # (Auto) 0.0 Baso # (Auto) 0.0 Abs Immat Gran (auto) 0.04 H Absolute Neuts (auto) 2.3 Absolute Nucleated RBC 0.000 Nucleated RBC % (auto) 0.0 Smear Tech's Comments VERIFIED PT Whole Blood PT 13.7 H INR Whole Blood INR 1.1 APTT Anion Gap Estim Creat Clear Calc Estimated GFR POC Glucose 79 Random Glucose Calcium Magnesium Total Bilirubin Direct Bilirubin AST ALT Alkaline Phosphatase Total Creatine Kinase Troponin I High Sens Total Protein Albumin Triglycerides Cholesterol LDL Cholesterol, Calc HDL Cholesterol Urine Color Urine Appearance Urine pH Ur Specific [place] Urine Protein Urine Glucose (UA) Urine Ketones Urine Blood Urine Nitrite Ur Leukocyte Esterase Ethyl Alcohol COVID-19 (MANOJ) COVID-19 Clin Com Influenza Type A (MARY) Influenza Type B (MARY) Influenza A & B Note 04/24/22 04/24/22 04/24/22 20:25 20:25 20:25 MCV MCH MCHC RDW Plt Count MPV Immature Gran % (Auto) Neut % (Auto) Lymph % (Auto) [place] % (Auto) Eos % (Auto) Baso % (Auto) Lymph # (Auto) [place] # (Auto) Eos # (Auto) Baso # (Auto) Abs Immat Gran (auto) Absolute Neuts (auto) Absolute Nucleated RBC Nucleated RBC % (auto) Smear Tech's Comments PT 14.2 H Whole Blood PT INR 1.2 H Whole Blood INR APTT 37.8 H Anion Gap 13 Estim Creat Clear Calc 50.7 Estimated GFR > 60 POC Glucose Random Glucose 90 Calcium 9.1 Magnesium 2.0 Total Bilirubin 0.7 Direct Bilirubin 0.2 AST 21 ALT 11 Alkaline Phosphatase 56 Total Creatine Kinase 73 Troponin I High Sens 3.5 Total Protein 7.6 Albumin 4.3 Triglycerides Cholesterol LDL Cholesterol, Calc HDL Cholesterol Urine Color Urine Appearance Urine pH Ur Specific [place] Urine Protein Urine Glucose (UA) Urine Ketones Urine Blood Urine Nitrite Ur Leukocyte Esterase Ethyl Alcohol < 10 COVID-19 (MANOJ) COVID-19 Clin Com Influenza Type A (MARY) Influenza Type B (MARY) Influenza A & B Note 04/24/22 04/25/22 04/25/22 21:59 00:42 00:42 MCV MCH MCHC RDW Plt Count MPV Immature Gran % (Auto) Neut % (Auto) Lymph % (Auto) [place] % (Auto) Eos % (Auto) Baso % (Auto) Lymph # (Auto) [place] # (Auto) Eos # (Auto) Baso # (Auto) Abs Immat Gran (auto) Absolute Neuts (auto) Absolute Nucleated RBC Nucleated RBC % (auto) Smear Tech's Comments PT Whole Blood PT INR Whole Blood INR APTT Anion Gap Estim Creat Clear Calc Estimated GFR POC Glucose Random Glucose Calcium Magnesium Total Bilirubin Direct Bilirubin AST ALT Alkaline Phosphatase Total Creatine Kinase Troponin I High Sens Total Protein Albumin Triglycerides Cholesterol LDL Cholesterol, Calc HDL Cholesterol Urine Color Yellow Urine Appearance Cloudy Urine pH 7.5 Ur Specific [place] 1.010 Urine Protein Negative Urine Glucose (UA) Negative Urine Ketones Negative Urine Blood Negative Urine Nitrite Negative Ur Leukocyte Esterase Negative Ethyl Alcohol COVID-19 (MANOJ) Negative COVID-19 Clin Com See Note Influenza Type A (MARY) Negative Influenza Type B (MARY) Negative Influenza A & B Note See Note 04/25/22 04/25/22 06:43 06:43 MCV 88.3 MCH 30.0 MCHC 34.0 RDW 12.8 Plt Count 120 L MPV 10.9 Immature Gran % (Auto) 0.6 H Neut % (Auto) 28.5 L Lymph % (Auto) 30.0 [place] % (Auto) 40.6 H Eos % (Auto) 0.3 Baso % (Auto) 0.0 Lymph # (Auto) 2.0 [place] # (Auto) 2.7 H Eos # (Auto) 0.0 Baso # (Auto) 0.0 Abs Immat Gran (auto) 0.04 H Absolute Neuts (auto) 1.9 L Absolute Nucleated RBC 0.000 Nucleated RBC % (auto) 0.0 Smear Tech's Comments VERIFIED PT Whole Blood PT INR Whole Blood INR APTT Anion Gap 9 L Estim Creat Clear Calc 58.0 Estimated GFR > 60 POC Glucose Random Glucose 95 Calcium 8.5 D Magnesium Total Bilirubin 0.9 Direct Bilirubin AST 16 ALT 10 Alkaline Phosphatase 54 Total Creatine Kinase Troponin I High Sens Total Protein 6.4 L Albumin 3.5 Triglycerides 55 Cholesterol 146 LDL Cholesterol, Calc 104 HDL Cholesterol 31 Urine Color Urine Appearance Urine pH Ur Specific [place] Urine Protein Urine Glucose (UA) Urine Ketones Urine Blood Urine Nitrite Ur Leukocyte Esterase Ethyl Alcohol COVID-19 (MANOJ) COVID-19 Clin Com Influenza Type A (MARY) Influenza Type B (MARY) Influenza A & B Note Assessment and Plan (1) Expressive aphasia: Status: Acute Plan This is an 86-year-old male with past medical history of hypertension, CAD, CABG presents to the hospital with concern of stroke/CVA acute aphasia likely secondary to acute CVA CT brain - age indeterminate small hypodensities new when compared to 09/26/2021. background of chronic microangiopathy and generalized cerebral volume loss head/neck CTA - multiple chronic lacunar infarcts, new but chronic appearing infarct within the right body of corpus callosum; multifocal intracranial stenosis, occusion right VENEER PRODUCTION MACHINE OPERATOR, distal left VENEER PRODUCTION MACHINE OPERATOR, intradural right vertebral artery - MRI ordered - neurology consult pending - PT/ OT eval - started on high statin, continue ASA hypertension BP high on arrival allow for permissive hypertension hold baseline antihypertensives for 24 hours Thrombocytopenia appears chronic follow CBC CAD continue aspirin resume metoprolol in am baseline dementia no meds on med rec DVT prophylaxis: Loveamandax attending - dr. salvador Requires ongoing inpatient hospitalization for specialist evaluation, close monitoring, brain MRI, PT/OT evaluation Time Spent With Patient Time: Total time managing care of this patient today ____ minutes. Quality Stroke Does the patient have a stroke diagnosis?: No VTE Prior VTE?: No VTE Risk Level:: Medical - moderate - high VTE Device Contraindication: Treatment Not Indicated VTE Drug Contraindication: N/A - Med Ordered
--- NOTE | 2022-04-25 13:38 | PC.NURSE ---
pt at MRI
--- NOTE | 2022-04-25 16:00 | MHC.EDTECH ---
this pct assumed care of pt at 1500 ,1600 rounding done ,vitals sign taken ,pt was assist with the urinal ,but did not void ,pt was reposition and boosted up in bed .
--- NOTE | 2022-04-25 19:59 | MHC.STROKE ---
Addendum entered by Olivia Lieberman, RN 04/27/22 11:02: 1030 I WENT TO SEE THE PATIENT TODAY AND INITIATE STROKE EDUCATION. HE WAS NOT ABLE TO COMPREHEND WHAT I WAS TRYING TO EXPLAIN. I SPOKE WITH OT AND THEY AGREE THAT HE WOULD BE AN EXCELLENT ACUTE REHAB CANDIDATE. I DID RELAY THIS TO THE RV DETAILER. I ALSO MENTIONED THAT WHEN THE DAUGHTER COMES IN I WOULD LIKE THEM TO TEXT ME SO I CAN REVIEW THE STROKE EDUCATION WITH HER. Original Note: 04/24/221943 [facility] PRE-NOTIFIED STROKE ALERT EXPRESSIVE APHASIA, ARRIVED [place] [facility] [place]. SEEN BY [id number], STROKE PROTOCOL ACTIVATED, DIRECT TO CT ON EMS STRETCHER. NIHSS = 1. DISCOVERY OF SYMPTOMS 1899 BUT LAST KNOWN WELL UNKNOWN, MIGHT BE DAY PRIOR 04/23/22. OUT OF THE WINDOW FOR TPA-ALTEPLASE. PASSED NURSING SWALLOW SCREEN PRIOR TO PO. STROKE EDUCATION INITIATED. STROKE ORDER SET USED. MRI + FOR LEFT FRONTAL ACUTE ISCHEMIC STROKE, I NOTIFIED DR. RAFFI [place] AND PATIENT WAS CHANGED TO INPATIENT STATUS. NEUROLOGY CONSULT PENDING, I WILL CONTINUE TO FOLLOW.
[2022-04-26] VITALS (8 sets, daily range): BP systolic 170–204; BP diastolic 68–98; PULSE 58–74; RESP 16–20; TEMP 36.4–37.6; O2SAT 95–97
[2022-04-26] MEDS: Atorvastatin Calcium 80 MG TABLET PO (09:26)
[2022-04-26] MEDS: 0.9 % Sodium Chloride Flush 3 ML SYRINGE IVFLUSH ×3 (09:27→22:10)
[2022-04-26] MEDS: Aspirin Enteric Coated 81 MG TABLET.DR PO (09:27)
[2022-04-26] MEDS: Metoprolol Succinate ER 25 MG TAB.ER.24H PO (09:27)
--- NOTE | 2022-04-26 10:40 | PM.NEUROCN ---
History of Present Illness Data of Consult Service Date: 04/26/22 Primary Care Provider: Justin Roman, [facility]- HPI Reason for consult: Stroke 86-year-old male with past medical history of CAD status post CABG, HTN, prostate cancer depression, who comes into the hospital for evaluation of stroke.? He came to hospital with new onset of difficulty speaking. Onset of symptom was unclear as he lived alone and could not provide any time details. There was no sign of trauma or seizure. Review of Systems Review of Systems: Review of system could not be done. COUNT INCLUDES THE [facility] Past Medical History Medical History CAD (coronary artery disease) Cancer of skin of left ear High blood pressure History of prostate cancer HTN (hypertension) Family History Family History Mother High blood pressure Father Heart disease Other Substance use disorder Surgical History Surgical History S/P CABG x 5 Social History Social History Household Members: None Housing: House Do you presently have visiting nurse or other home services: No Unable to assess alcohol history related to: Unable to respond Patient Tobacco Use Status: Former Tobacco user Tobacco use type: Cigarette Smoked in Last 30 Days: No e-Cigarette/Vaping Use: Never Used Second Hand Smoke Exposure: No Use of substances other than those prescribed or required for medical reasons: Unable to respond Currently Displaying Signs/Symptoms of Drug Intoxication Withdrawal: No Advance Directives: No Advance Directives Information Provided: Yes Do you have thoughts of harming others: None Do you have a plan to hurt others: No Plan Recently lost weight without trying: Unsure How much weight loss: Unsure Nutrition Risks: No Nutritional Risk Poor oral hygiene: No service: No Current occupational status: retired Cognitive needs: No Hearing needs: No Vision needs: No Meds Allergies Allergy/AdvReac Type Severity Reaction Status Date / Time codeine Allergy Mild mild Verified 03/03/22 15:31 Penicillins Allergy Mild mild Verified 03/03/22 15:31 morphine Allergy Unknown unknown Verified 03/03/22 15:31 Active Medications: Current Medications Acetaminophen (Acetaminophen 325 Mg Tablet) 650 mg PO Q6H PRN PRN Reason: Pain, Mild (Pain Scale 1-3) Aspirin (Aspirin Enteric Coated 81 Mg Tablet.) 81 mg PO DAILY [facility] Last Admin: 04/26/22 09:27 Dose: 81 mg Atorvastatin Calcium (Atorvastatin Calcium 80 Mg Tablet) 80 mg PO DAILY [facility] Last Admin: 04/26/22 09:26 Dose: 80 mg Docusate Sodium (Docusate Sodium 100 Mg Capsule) 100 mg PO DAILY PRN PRN Reason: Constipation Enoxaparin Sodium (Enoxaparin Sodium 40 Mg/0.4 Ml Syringe) 40 mg SUBCUT Q24H [facility] Last Admin: 04/25/22 22:29 Dose: 40 mg Melatonin (Melatonin 3 Mg Tablet) 6 mg PO BEDTIME PRN PRN Reason: Insomnia Metoprolol Succinate (Metoprolol Succinate Er 25 Mg Tab.Er.24h) 25 mg PO DAILY [facility]; Protocol Last Admin: 04/26/22 09:27 Dose: 25 mg Ondansetron HCl (Ondansetron Hcl 4 Mg/2 Ml Vial) 4 mg IVPUSH Q8H PRN PRN Reason: Nausea and Vomiting Sodium Chloride (0.9 % Sodium Chloride Flush 3 Ml Syringe) 3 ml IVFLUSH QSHIFT [facility] Last Admin: 04/26/22 09:27 Dose: 3 ml Home Medications Medication Instructions Recorded Confirmed Last Taken Type amlodipine 2.5 mg tablet 1 tab PO DAILY 04/25/22 04/25/22 Unknown History aspirin 81 mg tablet,delayed 81 mg PO DAILY 04/25/22 04/25/22 Unknown History release irbesartan 300 mg tablet 1 tab PO DAILY 04/25/22 04/25/22 Unknown History metoprolol succinate 25 mg 1 tab PO DAILY 04/25/22 04/25/22 Unknown History tablet,extended release 24 hr multivitamin 1 tab PO DAILY 04/25/22 04/25/22 Unknown History Physical Exam Vital Signs: Vital Signs: Last Vital Signs Temp 98.1 F 04/26/22 08:00 Pulse 68 04/26/22 08:00 Resp 16 04/26/22 08:00 BP 189/88 H 04/26/22 08:00 Pulse Ox 96 04/26/22 08:00 O2 Del Method 04/26/22 08:00 BMI result Body Mass Index 24.6 Neuro: Other: Alert and awake looking around made eye contact and mumbled couple of words but did not comprehend or stated anything that made sense. Did not answer questions. Face seems symmetrical. Extraocular muscles were intact. Examination was limited as he did not comprehend. Plantars were equivocal. Results Labs 04/25/22 06:43 04/25/22 06:43 Labs: MRI of brain revealed moderately severe diffuse underlying cerebral atrophy moderately severe chronic microvascular ischemic changes and a moderate size embolic looking left frontal ischemic acute infarction. CTA revealed intracranial atherosclerotic disease. Assessment and Plan (1) Expressive aphasia: Status: Acute 86 years old man who probably had underlying degenerative dementia came to hospital with difficulty speaking with unclear time of onset. He could not be treated with acute intervention or tPA. His evaluation revealed an acute left frontal ischemic infarction, which has resulted in aphasia. Likely etiology of this is intracranial atherosclerotic disease. Unfortunately there is no significant treatment for this. For now I recommend baby aspirin and clopidogrel 75 mg daily, blood pressure control and statins. Speech therapy is also recommended but due to underlying brain pathology suggestive of dementia it could be a difficult option Time Spent With Patient Time: Total time managing care of this patient today ____ minutes. Procedures Date of Service Date of Service: 04/26/22
[2022-04-26] MEDS: Clopidogrel Bisulfate 75 MG TABLET PO (12:01)
--- NOTE | 2022-04-26 12:14 | P.PNIM_ITS ---
Subjective Subjective Date of Service: 04/26/22 Interval History: seen and examined this morning follow up for acute stroke remains aphasic, able to answer yes/no questions; able to follow commands but appears frustrated denies pain of any kind and shortness of by shaking his head no otherwise difficult to obtain full ROS was able to tolerate breakfast without issue Physical Exam Vital Signs: Vital Signs: Last Vital Signs Temp 98.1 F 04/26/22 08:00 Pulse 68 04/26/22 08:00 Resp 16 04/26/22 08:00 BP 189/88 H 04/26/22 08:00 Pulse Ox 96 04/26/22 08:00 O2 Del Method 04/26/22 08:00 BMI result Body Mass Index 24.6 Const: Other: awake, alert, resting in bed, appears comfortable unable to assess orientation due to aphasia Resp: Effort & Inspection: normal respiratory effort, no respiratory distress and no use of accessory muscles Auscultation: clear to auscultation bilaterally Cardio: Rate: regular rate Heart sounds: S1 normal heart sound present and S2 normal heart sound present GI: Inspection: No distended Palpation (GI): Soft to palpation Neuro: Other: able to follow all commands. tongue midline, face symmetrical. hand grasp equal bilaterally; UE/LE strength equal bilaterally; aphasic Extrem: General: Yes no pedal edema Objective Data Active Medications Acetaminophen (Acetaminophen 325 Mg Tablet) 650 mg PO Q6H PRN PRN Reason: Pain, Mild (Pain Scale 1-3) Aspirin (Aspirin Enteric Coated 81 Mg Tablet.) 81 mg PO DAILY [facility] Last Admin: 04/26/22 09:27 Dose: 81 mg Documented By: DIONNE Atorvastatin Calcium (Atorvastatin Calcium 80 Mg Tablet) 80 mg PO DAILY [facility] Last Admin: 04/26/22 09:26 Dose: 80 mg Documented By: DIONNE Clopidogrel Bisulfate (Clopidogrel Bisulfate 75 Mg Tablet) 75 mg PO DAILY [facility] Last Admin: 04/26/22 12:01 Dose: 75 mg Documented By: DIONNE Docusate Sodium (Docusate Sodium 100 Mg Capsule) 100 mg PO DAILY PRN PRN Reason: Constipation Enoxaparin Sodium (Enoxaparin Sodium 40 Mg/0.4 Ml Syringe) 40 mg SUBCUT Q24H [facility] Last Admin: 04/25/22 22:29 Dose: 40 mg Documented By: ROLANDO Melatonin (Melatonin 3 Mg Tablet) 6 mg PO BEDTIME PRN PRN Reason: Insomnia Metoprolol Succinate (Metoprolol Succinate Er 25 Mg Tab.Er.24h) 25 mg PO DAILY [facility]; Protocol Last Admin: 04/26/22 09:27 Dose: 25 mg Documented By: DIONNE Ondansetron HCl (Ondansetron Hcl 4 Mg/2 Ml Vial) 4 mg IVPUSH Q8H PRN PRN Reason: Nausea and Vomiting Sodium Chloride (0.9 % Sodium Chloride Flush 3 Ml Syringe) 3 ml IVFLUSH QSHIFT [facility] Last Admin: 04/26/22 09:27 Dose: 3 ml Documented By: DIONNE Labs 04/25/22 06:43 04/25/22 06:43 Assessment and Plan (1) Expressive aphasia: Status: Acute (2) CVA (cerebral vascular accident): Status: Acute Plan This is an 86-year-old male with past medical history of hypertension, CAD, CABG presents to the hospital with concern of stroke/CVA acute stroke remains aphasia unknown LKWT therefore was not candidate for tpa. passed bedside swallow eval CT brain - age indeterminate small hypodensities new when compared to 2. background of chronic microangiopathy and generalized cerebral volume loss head/neck CTA - multiple chronic lacunar infarcts, new but chronic appearing infarct within the right body of corpus callosum; multifocal intracranial stenosis, occusion right BENEFIT AUTHORIZER, distal left BENEFIT AUTHORIZER, intradural right vertebral artery brain MRI - acute infarct in the left frontal lobe without mass effect or hemorrhagic conversion seen by neurology - rec asa/plavix, statin BP goal MAP <110. will start to re-introduce bp meds, resume metoprolol, norvasc. irbesartan still on hold seen by PT - rec rehab OT/speech eval pending hypertension BP high on arrival initially bp meds on hold to allow for permissive hypertension will slowly resume as above Thrombocytopenia appears chronic monitor while on DAPT CAD continue aspirin, BB now on statin baseline dementia no meds on med rec DVT prophylaxis: Thong attending - dr. middleton dispo - likely rehab discussed with daughter Leonila 04/26 (pt nodded yes when asked if daughter could be contacted - no formal HCP on file at this time) Requires ongoing inpatient hospitalization for specialist evaluation, close monitoring, bp control, OT, speech eval, safe dispo Time Spent With Patient Time: Total time managing care of this patient today ____ minutes. Quality Stroke Does the patient have a stroke diagnosis?: No VTE Prior VTE?: No VTE Risk Level:: Medical - moderate - high VTE Device Contraindication: Treatment Not Indicated VTE Drug Contraindication: N/A - Med Ordered
[2022-04-26] MEDS: amLODIPine Besylate 2.5 MG TABLET PO (12:35)
[2022-04-26] MEDS: hydrALAZINE HCl 20 MG/ML VIAL 5 MG IVPUSH (20:37)
[2022-04-26] MEDS: Enoxaparin Sodium 40 MG/0.4 ML SYRINGE SUBCUT (22:09)
[2022-04-26] MEDS: Nitroglycerin 0.1 MG PATCH.TD24 TRANSDERMA (22:09)
[2022-04-27] VITALS (10 sets, daily range): BP systolic 148–200; BP diastolic 74–91; PULSE 55–68; RESP 17–20; TEMP 36.4–37.3; O2SAT 95–99
--- NOTE | 2022-04-27 00:19 | PC.NURSE ---
04/26/22 Pt's BP-192/78 P-60 notified ordered hydralazine 5mg iv x 1 given at 2036.2149 rechecked BP-204/98 manually P-65. notified ordered nitropatch 0.1mg applied to right upper arm.0000 BP-172/74 P-59.
[2022-04-27] MEDS: Valsartan 160 MG TABLET PO (08:01)
[2022-04-27] MEDS: Atorvastatin Calcium 80 MG TABLET PO (08:01)
[2022-04-27] MEDS: 0.9 % Sodium Chloride Flush 3 ML SYRINGE IVFLUSH ×3 (08:01→21:32)
[2022-04-27] MEDS: Clopidogrel Bisulfate 75 MG TABLET PO (08:01)
[2022-04-27] MEDS: Aspirin Enteric Coated 81 MG TABLET.DR PO (08:01)
[2022-04-27] MEDS: amLODIPine Besylate 2.5 MG TABLET PO (08:01)
--- NOTE | 2022-04-27 09:57 | HO.PM.IMPN ---
Subjective Subjective Date of Service: 04/27/22 Interval History: seen and examined this morning follow up for acute stroke remains aphasic, able to answer yes/no questions; able to follow commands but appears frustrated Physical Exam Vital Signs: Vital Signs: Last Vital Signs Temp 97.7 F 04/27/22 07:46 Pulse 55 04/27/22 07:46 Resp 17 04/27/22 07:46 BP 173/85 H 04/27/22 07:54 Pulse Ox 98 04/27/22 07:46 O2 Del Method 04/27/22 07:46 BMI result Body Mass Index 24.6 Appearing in no acute distress lung sounds are clear to auscultation heart regular rate rhythm, clear S1, S2 positive bowel sounds, abdomen is soft, nontender neuro patient is alert, aphagia Objective Data Active Medications Acetaminophen (Acetaminophen 325 Mg Tablet) 650 mg PO Q6H PRN PRN Reason: Pain, Mild (Pain Scale 1-3) Amlodipine Besylate (Amlodipine Besylate 2.5 Mg Tablet) 2.5 mg PO DAILY [facility]; Protocol Last Admin: 04/27/22 08:01 Dose: 2.5 mg Documented By: MONI Aspirin (Aspirin Enteric Coated 81 Mg Tablet.) 81 mg PO DAILY [facility] Last Admin: 04/27/22 08:01 Dose: 81 mg Documented By: MONI Atorvastatin Calcium (Atorvastatin Calcium 80 Mg Tablet) 80 mg PO DAILY [facility] Last Admin: 04/27/22 08:01 Dose: 80 mg Documented By: MONI Clopidogrel Bisulfate (Clopidogrel Bisulfate 75 Mg Tablet) 75 mg PO DAILY [facility] Last Admin: 04/27/22 08:01 Dose: 75 mg Documented By: MONI Docusate Sodium (Docusate Sodium 100 Mg Capsule) 100 mg PO DAILY PRN PRN Reason: Constipation Enoxaparin Sodium (Enoxaparin Sodium 40 Mg/0.4 Ml Syringe) 40 mg SUBCUT Q24H [facility] Last Admin: 04/26/22 22:09 Dose: 40 mg Documented By: STANLEY Melatonin (Melatonin 3 Mg Tablet) 6 mg PO BEDTIME PRN PRN Reason: Insomnia Metoprolol Succinate (Metoprolol Succinate Er 25 Mg Tab.Er.24h) 25 mg PO DAILY [facility]; Protocol Last Admin: 04/26/22 09:27 Dose: 25 mg Documented By: DIONNE Ondansetron HCl (Ondansetron Hcl 4 Mg/2 Ml Vial) 4 mg IVPUSH Q8H PRN PRN Reason: Nausea and Vomiting Sodium Chloride (0.9 % Sodium Chloride Flush 3 Ml Syringe) 3 ml IVFLUSH QSHIFT [facility] Last Admin: 04/27/22 08:01 Dose: 3 ml Documented By: MONI Valsartan (Valsartan 160 Mg Tablet) 160 mg PO DAILY [facility] Last Admin: 04/27/22 08:01 Dose: 160 mg Documented By: MONI Labs 04/25/22 06:43 04/25/22 06:43 Assessment and Plan (1) Expressive aphasia: Status: Acute (2) CVA (cerebral vascular accident): Status: Acute Plan This is an 86-year-old male with past medical history of hypertension, CAD, CABG presents to the hospital with concern of stroke/CVA Acute stroke remains aphasic brain MRI - acute infarct in the left frontal lobe without mass effect or hemorrhagic conversion seen by neurology - rec asa/plavix, statin continue bp meds, resume metoprolol, norvasc, irbesartan seen by PT - rec rehab OT/speech eval pending Hypertension continue all BP meds, valsartan, metoprolol and amlodipine Adjust medications for blood pressure control Thrombocytopenia appears chronic monitor while on DAPT CAD continue aspirin, BB now on statin baseline dementia no meds on med rec DVT prophylaxis: Thong attending - Dr. Todd obregon - likely rehab discussed with daughter Leonila 04/26 (pt nodded yes when asked if daughter could be contacted - no formal HCP on file at this time) Requires ongoing inpatient hospitalization for specialist evaluation, close monitoring, bp control, OT, speech eval, safe dispo Time Spent With Patient Time: Total time managing care of this patient today ____ minutes. Quality Stroke Does the patient have a stroke diagnosis?: No VTE Prior VTE?: No VTE Risk Level:: Medical - moderate - high VTE Device Contraindication: Treatment Not Indicated VTE Drug Contraindication: N/A - Med Ordered
--- NOTE | 2022-04-27 11:00 | MHC.CM.PN ---
emr reviewed, per hospitalist pt should be medically cleared for d/c to rehab today, [facility] following and have been updated w/NEURO consult and OT eval, speech pending. CM attempted to meet w/pt who was unable to give CM an answer on preferred SNF and cm attempted to contact Dtr/hcp Aggie at number on file, however no answer and detailed message left. Cm will cont to follow referral and check for alternate family member.
--- NOTE | 2022-04-27 12:21 | MHC.SL.SWA ---
Speech Pathologist Impression: Severe global aphasia Risk of Aspiration Due to: Neurological Condition, Recent Stroke Dysphasia Diet Status: No Change Liquid Consistency and Strategies for Safe Swallow: Liquid Intake Recommendation: Thin Liquid Intake Strategies: Small Sips Solid Food Consistency: Dietary Recommendations: Regular Additional Modifications to Solid Foods: Pt to wear dentures when eating. Recommend aspiration precautions d/t recent stroke. Oral Medication Intake: Whole with Liquid Please contact the pharmacy regarding appropriate crushable or liquid drug formulations that are available whenever modified delivery is recommended. Compensatory Strategies and Precautions to be Taken for Safe Swallow: Sitting Upright (90 deg) Double Swallow Small Bites and Sips Rate of Ingestion Change Supervision While Eating and Drinking for Safe Swallow: Intermittent Supervision Swallowing Recommended Treatments: Compens. Strategy Educat. Recommendation for Speech: Inpatient Speech Therapy Speech Therapy through Rehab Facility Comment: Pt presents with severe global aphasia. Recommend continue speech therapy during hospital stay and at next level of care. Per Diem Clerk Clinican/Clinical Fellow: No Supervisory Statement: I have reviewed and agree with the student/clinical fellow's documentation: N/A Speech Language Pathologist: Kailee Ramos M.A., CCC-SUPERVISOR SEWER SYSTEM
--- NOTE | 2022-04-27 12:27 | MHC.SLORD ---
Speech Language Pathology Order Status: Pt seen for speech and language screening. Pt presents with SEVERE GLOBAL APHASIA, with difficulties in naming, repetition, automatic speech, and comprehension. Recommend speech therapy at bedside daily during hospitalization. Recommend continue intensive speech therapy for functional communication at next level of care (rehab?). Notified attending hospitalist.
--- NOTE | 2022-04-27 13:48 | MHC.CM.PN ---
CM RECEIVED MESSAGE FROM [facility] REPORTING THEY CAN OFFER AND WILL GO FOR AUTH. PER CONVERSATION W/GDTR LISA PREFERRED FACILITY IS [facility], LISA REPORTS FACILITY IS CLOSER TO HER. CM WILL CONT TO FOLLOW.
--- NOTE | 2022-04-27 16:17 | MHC.CM.PN ---
PER [facility] INSURANCE AUTH STILL PENDING, PT AWARE AND DTR IN ROOM W/FACILITY, CM WILL FOLLOW UP IN AM.
[2022-04-27] MEDS: hydrALAZINE HCl 20 MG/ML VIAL 5 MG IVPUSH (21:31)
[2022-04-27] MEDS: Enoxaparin Sodium 40 MG/0.4 ML SYRINGE SUBCUT (23:13)
[2022-04-28] VITALS (7 sets, daily range): BP systolic 119–178; BP diastolic 60–86; PULSE 63–69; RESP 15–20; TEMP 36.1–36.9; O2SAT 96–98
--- NOTE | 2022-04-28 03:16 | PC.NURSE ---
04/27/22 Pt's BP-200/90 manually P-61 notified ordered hydralazine 5mg iv given at 2130.Re-checked BP at 2200 170/80 manually.Pt asymptomatic.
--- NOTE | 2022-04-28 07:22 | HO.PM.IMPN ---
Subjective Subjective Date of Service: 04/28/22 Interval History: seen and examined this morning follow up for acute stroke remains aphasic, able to answer yes/no questions; able to follow commands but appears frustrated Physical Exam Vital Signs: Vital Signs: Last Vital Signs Temp 97.6 F 04/28/22 03:33 Pulse 66 04/28/22 03:33 Resp 18 04/28/22 03:33 BP 178/72 H 04/28/22 03:33 Pulse Ox 97 04/28/22 03:33 O2 Del Method 04/28/22 03:33 BMI result Body Mass Index 24.6 Appearing in no acute distress lung sounds are clear to auscultation heart regular rate rhythm, clear S1, S2 positive bowel sounds, abdomen is soft, nontender neuro patient is alert x3, aphagia Objective Data Active Medications Acetaminophen (Acetaminophen 325 Mg Tablet) 650 mg PO Q6H PRN PRN Reason: Pain, Mild (Pain Scale 1-3) Amlodipine Besylate (Amlodipine Besylate 2.5 Mg Tablet) 2.5 mg PO DAILY [facility]; Protocol Last Admin: 04/27/22 08:01 Dose: 2.5 mg Documented By: MONI Aspirin (Aspirin Enteric Coated 81 Mg Tablet.) 81 mg PO DAILY [facility] Last Admin: 04/27/22 08:01 Dose: 81 mg Documented By: MONI Atorvastatin Calcium (Atorvastatin Calcium 80 Mg Tablet) 80 mg PO DAILY [facility] Last Admin: 04/27/22 08:01 Dose: 80 mg Documented By: MONI Clopidogrel Bisulfate (Clopidogrel Bisulfate 75 Mg Tablet) 75 mg PO DAILY [facility] Last Admin: 04/27/22 08:01 Dose: 75 mg Documented By: MONI Docusate Sodium (Docusate Sodium 100 Mg Capsule) 100 mg PO DAILY PRN PRN Reason: Constipation Enoxaparin Sodium (Enoxaparin Sodium 40 Mg/0.4 Ml Syringe) 40 mg SUBCUT Q24H [facility] Last Admin: 04/27/22 23:13 Dose: 40 mg Documented By: STANLEY Melatonin (Melatonin 3 Mg Tablet) 6 mg PO BEDTIME PRN PRN Reason: Insomnia Metoprolol Succinate (Metoprolol Succinate Er 25 Mg Tab.Er.24h) 25 mg PO DAILY [facility]; Protocol Last Admin: 04/27/22 10:49 Dose: Not Given Documented By: MONI Non-Admin Reason: Decreased Heart Rate Ondansetron HCl (Ondansetron Hcl 4 Mg/2 Ml Vial) 4 mg IVPUSH Q8H PRN PRN Reason: Nausea and Vomiting Sodium Chloride (0.9 % Sodium Chloride Flush 3 Ml Syringe) 3 ml IVFLUSH QSHIFT [facility] Last Admin: 04/27/22 21:32 Dose: 3 ml Documented By: STANLEY Valsartan (Valsartan 160 Mg Tablet) 160 mg PO DAILY [facility] Last Admin: 04/27/22 08:01 Dose: 160 mg Documented By: MONI Labs 04/25/22 06:43 04/25/22 06:43 Assessment and Plan (1) Expressive aphasia: Status: Acute (2) CVA (cerebral vascular accident): Status: Acute Plan This is an 86-year-old male with past medical history of hypertension, CAD, CABG presents to the hospital with concern of stroke/CVA Acute stroke remains aphasic brain MRI - acute infarct in the left frontal lobe without mass effect or hemorrhagic conversion seen by neurology - rec asa/plavix, statin continue bp meds, resume metoprolol, norvasc, irbesartan seen by PT - rec rehab OT/speech eval rec STR Hypertension continue all BP meds, valsartan, metoprolol and amlodipine (increased to 5 mg) Adjust medications for blood pressure control Thrombocytopenia appears chronic monitor while on DAPT CAD continue aspirin, BB now on statin baseline dementia no meds on med rec DVT prophylaxis: Thong attending - Dr. Todd simpsono - likely rehab discussed with daughter Leonila 04/26 (pt nodded yes when asked if daughter could be contacted - no formal HCP on file at this time) Requires ongoing inpatient hospitalization for specialist evaluation, close monitoring, bp control, OT, speech eval, safe dispo Time Spent With Patient Time: Total time managing care of this patient today ____ minutes. Quality Stroke Does the patient have a stroke diagnosis?: No VTE Prior VTE?: No VTE Risk Level:: Medical - moderate - high VTE Device Contraindication: Treatment Not Indicated VTE Drug Contraindication: N/A - Med Ordered
[2022-04-28] MEDS: amLODIPine Besylate 5 MG TABLET PO (09:12)
[2022-04-28] MEDS: Atorvastatin Calcium 80 MG TABLET PO (09:13)
[2022-04-28] MEDS: Clopidogrel Bisulfate 75 MG TABLET PO (09:13)
[2022-04-28] MEDS: 0.9 % Sodium Chloride Flush 3 ML SYRINGE IVFLUSH ×3 (09:13→23:54)
[2022-04-28] MEDS: Metoprolol Succinate ER 25 MG TAB.ER.24H PO (09:13)
[2022-04-28] MEDS: Aspirin Enteric Coated 81 MG TABLET.DR PO (09:13)
[2022-04-28] MEDS: Valsartan 160 MG TABLET PO (09:13)
[2022-04-28 10:13] LABS: COVID-19 Test Negative (Negative); IDNOW Serial# BCCEAD1C
--- NOTE | 2022-04-28 13:19 | MHC.CM.PN ---
EMR REVIEWED, PT REMAINS MEDICALLY CLEARED FOR D/C TO ACUTE REHAB HOWEVER [facility] STILL AWAITING INSURANCE, PT/NSG AND PT'S DTR/HCP ELIA UPDATED. DTR AWARE IF WE GET AUTH PT WILL BE TRANSFERRED AT [facility] 4PM VIA [facility] AND IS AGREEABLE TO PLAN.
[2022-04-28] MEDS: Acetaminophen 325 MG TABLET 650 MG PO (16:27)
[2022-04-28] MEDS: Enoxaparin Sodium 40 MG/0.4 ML SYRINGE SUBCUT (23:53)
[2022-04-29 03:50] VITALS: BP 169/84; PULSE 65; RESP 14; TEMP 36.2; O2SAT 96
[2022-04-29 07:56] VITALS: BP 161/78; PULSE 60; RESP 17; TEMP 37.3; O2SAT 99
[2022-04-29] MEDS: Aspirin Enteric Coated 81 MG TABLET.DR PO (08:32)
[2022-04-29] MEDS: Valsartan 160 MG TABLET PO (08:32)
[2022-04-29] MEDS: Atorvastatin Calcium 80 MG TABLET PO (08:32)
[2022-04-29] MEDS: Metoprolol Succinate ER 25 MG TAB.ER.24H PO (08:32)
[2022-04-29] MEDS: amLODIPine Besylate 5 MG TABLET PO (08:32)
[2022-04-29] MEDS: Clopidogrel Bisulfate 75 MG TABLET PO (08:32)
[2022-04-29] MEDS: 0.9 % Sodium Chloride Flush 3 ML SYRINGE IVFLUSH (08:37)
--- NOTE | 2022-04-29 10:15 | HO.PM.IMPN ---
Subjective Subjective Date of Service: 04/29/22 Interval History: seen and examined this morning follow up for acute stroke remains aphasic, able to answer yes/no questions; able to follow commands but appears frustrated Physical Exam Vital Signs: Vital Signs: Last Vital Signs Temp 99.2 F 04/29/22 07:56 Pulse 60 04/29/22 07:56 Resp 17 04/29/22 07:56 BP 161/78 H 04/29/22 07:56 Pulse Ox 99 04/29/22 07:56 O2 Del Method 04/29/22 07:56 BMI result Body Mass Index 24.6 Appearing in no acute distress lung sounds are clear to auscultation heart regular rate rhythm, clear S1, S2 positive bowel sounds, abdomen is soft, nontender neuro patient is alert x3, no focal deficits Objective Data Active Medications Acetaminophen (Acetaminophen 325 Mg Tablet) 650 mg PO Q6H PRN PRN Reason: Pain, Mild (Pain Scale 1-3) Last Admin: 04/28/22 16:27 Dose: 650 mg Documented By: CATERINA Amlodipine Besylate (Amlodipine Besylate 5 Mg Tablet) 5 mg PO DAILY [facility]; Protocol Last Admin: 04/29/22 08:32 Dose: 5 mg Documented By: CHIO Aspirin (Aspirin Enteric Coated 81 Mg Tablet.Dr) 81 mg PO DAILY [facility] Last Admin: 04/29/22 08:32 Dose: 81 mg Documented By: CHIO Atorvastatin Calcium (Atorvastatin Calcium 80 Mg Tablet) 80 mg PO DAILY [facility] Last Admin: 04/29/22 08:32 Dose: 80 mg Documented By: CHIO Clopidogrel Bisulfate (Clopidogrel Bisulfate 75 Mg Tablet) 75 mg PO DAILY [facility] Last Admin: 04/29/22 08:32 Dose: 75 mg Documented By: CHIO Docusate Sodium (Docusate Sodium 100 Mg Capsule) 100 mg PO DAILY PRN PRN Reason: Constipation Enoxaparin Sodium (Enoxaparin Sodium 40 Mg/0.4 Ml Syringe) 40 mg SUBCUT Q24H [facility] Last Admin: 04/28/22 23:53 Dose: 40 mg Documented By: RAMU Melatonin (Melatonin 3 Mg Tablet) 6 mg PO BEDTIME PRN PRN Reason: Insomnia Metoprolol Succinate (Metoprolol Succinate Er 25 Mg Tab.Er.24h) 25 mg PO DAILY [facility]; Protocol Last Admin: 04/29/22 08:32 Dose: 25 mg Documented By: CHIO Ondansetron HCl (Ondansetron Hcl 4 Mg/2 Ml Vial) 4 mg IVPUSH Q8H PRN PRN Reason: Nausea and Vomiting Sodium Chloride (0.9 % Sodium Chloride Flush 3 Ml Syringe) 3 ml IVFLUSH QSHIFT [facility] Last Admin: 04/29/22 08:37 Dose: 3 ml Documented By: CHIO Valsartan (Valsartan 160 Mg Tablet) 160 mg PO DAILY [facility] Last Admin: 04/29/22 08:32 Dose: 160 mg Documented By: CHIO Labs 04/25/22 06:43 04/25/22 06:43 Assessment and Plan (1) Expressive aphasia: Status: Acute (2) CVA (cerebral vascular accident): Status: Acute Plan This is an 86-year-old male with past medical history of hypertension, CAD, CABG presents to the hospital with concern of stroke/CVA Acute stroke remains aphasic brain MRI - acute infarct in the left frontal lobe without mass effect or hemorrhagic conversion seen by neurology - rec asa/plavix, statin continue bp meds, resume metoprolol, norvasc, irbesartan seen by PT - rec rehab OT/speech eval rec STR had increased weakness with PT 04/28/22, repeat head CT did not show hemorrhagic conversion or acute infarction Hypertension continue all BP meds, valsartan, metoprolol and amlodipine (increased to 5 mg) Adjust medications for blood pressure control Thrombocytopenia appears chronic monitor while on DAPT CAD continue aspirin, BB now on statin baseline dementia no meds on med rec DVT prophylaxis: Thong attending - Dr. Brooks dispo - likely rehab discussed with daughter Leonila 04/26 (pt nodded yes when asked if daughter could be contacted - no formal HCP on file at this time) Requires ongoing inpatient hospitalization for specialist evaluation, close monitoring, bp control, OT, speech eval, safe dispo Time Spent With Patient Time: Total time managing care of this patient today ____ minutes. Quality Stroke Does the patient have a stroke diagnosis?: No VTE Prior VTE?: No VTE Risk Level:: Medical - moderate - high VTE Device Contraindication: Treatment Not Indicated VTE Drug Contraindication: N/A - Med Ordered
[2022-04-29 11:06] VITALS: BP 123/68; PULSE 65; RESP 18; TEMP 37.2; O2SAT 97
[2022-04-29 15:11] VITALS: BP 140/69; PULSE 72; RESP 15; TEMP 36.3; O2SAT 97
--- NOTE | 2022-04-29 15:32 | MHC.CM.PN ---
pt to be dcd today at 430 to [facility] at 4:30 bulmaro greenberg notified
--- NOTE | 2022-04-29 15:47 | PM.DS ---
DS: Providers Provider Date of Service: 04/29/22 Date of admission: 04/24/22 23:28 Primary care physician: LORI Armando Consults: 04/24/22 23:31 Consult to Neurology Routine Consulting Provider: [facility] Reason for consultation: CVA Has provider been notified: No Attending physician on discharge: Amanuel Brooks Discharging clinician: Latrice Riggs DS: Diagnosis Discharge Diagnosis (1) Expressive aphasia: Status: Acute (2) CVA (cerebral vascular accident): Status: Acute DS: Summary Hospital Course Hospital Course: History and physical as per admitting provider 86-year-old male with past medical history of CAD status post CABG, HTN, prostate cancer depression, who comes into the hospital for evaluation of stroke.? Patient is alert, but unable to assess for orientation as patient is aphasic, he seems to understand my question but responds with nonsensical words that do not match the question.? Seems that he is having difficulty finding words.? According to the daughter at bedside patient usually lives alone.? They received a call from him this afternoon seeming confused, not making any sense,knows his daughter's name but does not recognize her as his daughter, therefore was brought into the hospital.? Unable to assess for review of system is patient is unable to answer appropriately. On arrival to the ED patient hemodynamically stable with BP of 216/90. Labs are significant for WBC count of 7.2, hemoglobin 13.1, hematocrit 38 point now which is around his baseline, INR of 1.2, labs otherwise unremarkable, Head CT shows an age-indeterminate small hypodensity which is new from August of 2021, no evidence of acute intracranial hemorrhage or adematous territorial infarct, chronic microangiopathic and generalized cerebral volume loss Patient will be admitted for further management . Acute stroke. remains aphasic. brain MRI? - acute? infarct in the left frontal lobe without mass effect or hemorrhagic conversion. seen by neurology - rec asa/plavix, statin. continue bp meds, resume metoprolol, norvasc, irbesartan. seen by PT - rec rehab. had increased weakness with PT 04/28/22, repeat head CT did not show hemorrhagic conversion or acute infarction Hypertension. continue all BP meds, valsartan, metoprolol and amlodipine (increased to 5 mg). Adjust medications for blood pressure control Thrombocytopenia. appears chronic. monitor while on DAPT CAD. continue aspirin, BB. now on statin baseline dementia. no meds on med rec Time Spent with Patient Time attestation: Total time managing care of this patient today ____ minutes. Discharge coordination time: Greater than 30 minutes Quality: Safe Use of Opioids Does Pt have an Active Cancer Diagnosis on the Problem List?: No Quality: Stroke Does the patient have a stroke diagnosis?: No Physical Exam Vital Signs: Vital Signs: Last Vital Signs Temp 97.3 F 04/29/22 15:11 Pulse 72 04/29/22 15:11 Resp 15 04/29/22 15:11 BP 140/69 H 04/29/22 15:11 Pulse Ox 97 04/29/22 15:11 O2 Del Method 04/29/22 15:11 BMI result Body Mass Index 24.6 Appearing in no acute distress head is normocephalic atraumatic eyes pupils are PERRLA sclera is anicteric mouth throat mucous membranes are intact and moist neck is supple no lymphadenopathy, no JVD noted lung sounds are clear to auscultation heart regular rate rhythm, clear S1, S2 positive bowel sounds, abdomen is soft, nontender neuro patient is alert, aphasic, able to say yes or no and shake his head for yes and no Discharge Plan Discharge Anticipated Discharge Date/Time: 04/29/22 15:44 Patient Disposition: Xfer Inpatient Rehab Fac Discharge Diagnosis: CVA Aphasia Referrals: [facility] [Other] - 1 Week Justin Roman HISTORIC PRESERVATIONIST- [Primary Care Provider] - 1 Week Discharge Medications: New atorvastatin 80 mg Tablet 80 mg PO DAILY Qty: 30 0RF amlodipine 5 mg Tablet 5 mg PO DAILY Qty: 30 0RF Protocol: Hold for SBP< HOLD for SBP < : 90 Continued (DME) Desiree Lias-Small Misc See Rx Instructions .Route Qty: 96 0RF Rx Instructions: change 3 times daily metoprolol succinate 25 mg tablet extended release 24 hr 1 tab PO DAILY irbesartan 300 mg tablet 1 tab PO DAILY multivitamin Tablet 1 tab PO DAILY aspirin 81 mg Tablet,Delayed Release (Dr/Ec) 81 mg PO DAILY (DME) diaper,brief,adult,disposable Misc See Rx Instructions .MEDSUPPLY Qty: 48 5RF Rx Instructions: As directed - 2 per day Discontinued amlodipine 2.5 mg tablet 1 tab PO DAILY Discharge Orders: Discharge Order (Routine); Ordered 04/29/22 Ordered By: Latrice Riggs Diet: Advance to usual diet Activity on Discharge: As tolerated Stand Alone Forms: Patient Portal Discharge page Care Plan Goals: Increase in function and speech patterns Health Concerns: CVA Aphasia Plan of Treatment: Follow-up with primary care provider once released from short-term rehab Take all medications as prescribed Assessment: See discharge summary
== END 2022-04-29 17:00 | disposition skilled nursing facility (03) | DRG 65 ==
LOC: HO.ED 23:51 → HO.EDOVER 04-25 07:09 → HO.S3 04-25 19:57 → HO.IMC 04-28 15:01
PROVIDERS: Admitting Provider Internal Medicine; Emergency Provider Emergency Medicine Emergency Medical Services; PCP Nurse Practitioner Family; Visit Provider Nurse Practitioner Acute Care
DX: I63.9 Cerebral infarction, unspecified (principal); G81.91 Hemiplegia, unspecified affecting right dominant side; R47.01 Aphasia; I25.10 Atherosclerotic heart disease of native coronary artery without angina pectoris; Z95.1 Presence of aortocoronary bypass graft; R29.701 NIHSS score 1; R47.1 Dysarthria and anarthria; I10 Essential (primary) hypertension; D69.6 Thrombocytopenia, unspecified; F03.90 Unspecified dementia, unspecified severity, without behavioral disturbance, psychotic disturbance, mood disturbance, and anxiety; Z87.891 Personal history of nicotine dependence; Z88.0 Allergy status to penicillin; Z88.5 Allergy status to narcotic agent; Z79.82 Long term (current) use of aspirin; Z79.899 Other long term (current) drug therapy
CPT/HCPCS: 36415; 70450; 70496; 70498; 70551; 71045; 80048; 80053; 80061; 80076; 81003; 82077; 82550; 82947; 83735; 84484; 85025; 85610; 85730; 87502; 87635; 92610; 93005; 97112; 97116; 97162; 97166; 97530; 97535; 99285; J1650; Q9967

== ENCOUNTER 2022-05-14 17:08 | Emergency (ER) | payer OTHER, SELFPAY ==
--- NOTE | ~2022-05-14 | CT_ITS ---
EXAMINATION: CT brain and CT cervical spine without contrast. CLINICAL INFORMATION: Fall, history of CVA COMPARISON: CT and MRI brain without contrast 04/25/2022 TECHNIQUE: 5 mm thin axial and reformatted 2 mm thin sagittal and coronal images of brain were obtained. Subsequently axial 3 mm thin and reformatted 2 mm thin images of cervical spine were obtained. DLP [id number]. FINDINGS: There is no acute intra-axial, extra-axial bleed, masses, collection or midline shift. There is left frontal lobe/coronal radiata hypodensity from old infarction. This was noted on the previous MRI brain 04/25/2022. There is no acute infarction evolution. The lateral ventricles are symmetrical but moderately enlarged and so are the cortical sulci. Bone windows reveal no calvarial abnormality. There is no scalp soft tissue abnormality. Bilateral paranasal sinuses and mastoid air cells are well-aerated. There is mild mucoperiosteal thickening bilateral maxillary sinuses. CT/CT cervical spine wo IV con IMPRESSION: 1. No acute intracranial process seen. 2. Old left frontal lobe/eid radiata infarct. 3. Age-related cerebral volume loss. 4. Chronic bilateral maxillary sinus inflammatory changes..
--- NOTE | ~2022-05-14 | XR_ITS ---
EXAMINATION: XR SHOULDER, RIGHT CLINICAL INFORMATION: Right shoulder pain status post fall COMPARISON: None available. TECHNIQUE: AP external rotation, Grashey, scapular Y, and axillary views of the right shoulder. FINDINGS: There is loss of glenohumeral and AC joint space with periarticular spurring. No visible acute fracture, dislocation or subluxation seen. The soft tissues are normal. XR/XR shoulder RT min 2V IMPRESSION: Degenerative arthritic changes right shoulder.
--- NOTE | ~2022-05-14 | CT_ITS ---
EXAMINATION: CT brain and CT cervical spine without contrast. CLINICAL INFORMATION: Fall, history of CVA COMPARISON: CT and MRI brain without contrast 04/25/2022 TECHNIQUE: 5 mm thin axial and reformatted 2 mm thin sagittal and coronal images of brain were obtained. Subsequently axial 3 mm thin and reformatted 2 mm thin images of cervical spine were obtained. DLP [id number]. FINDINGS: There is no acute intra-axial, extra-axial bleed, masses, collection or midline shift. There is left frontal lobe/coronal radiata hypodensity from old infarction. This was noted on the previous MRI brain 04/25/2022. There is no acute infarction evolution. The lateral ventricles are symmetrical but moderately enlarged and so are the cortical sulci. Bone windows reveal no calvarial abnormality. There is no scalp soft tissue abnormality. Bilateral paranasal sinuses and mastoid air cells are well-aerated. There is mild mucoperiosteal thickening bilateral maxillary sinuses. CT/CT head/brain wo IV con IMPRESSION: 1. No acute intracranial process seen. 2. Old left frontal lobe/eid radiata infarct. 3. Age-related cerebral volume loss. 4. Chronic bilateral maxillary sinus inflammatory changes..
[2022-05-14 17:38] VITALS: BP 150/92; BP 164/76; PULSE 64; PULSE 68; RESP 18; TEMP 36.9; O2SAT 99; BMI 27.2
--- NOTE | 2022-05-14 18:01 | PC.NURSE ---
Upon arrival patient is alert and non-verbal due to previous stroke. Patient says yes to every question asked. Patient noted to have a small area to right forehead.
--- NOTE | 2022-05-14 18:41 | ED_ITS ---
HPI - Fall General Chief Complaint: Fall Stated Complaint: call w/ headstrike Time Seen by Provider: 05/14/22 18:20 Source: EMS Mode of arrival: EMS Limitations: other History of Present Illness HPI Narrative: Patient comes to the emergency room via EMS from a senior living facility. EMS reports that the patient was sitting down, seems that he lost balance while sitting down, patient fell forward landed on his face. Since the patient did not lose consciousness but it is unclear since this was not witnessed. When staff her the patient fell, they immediately went to assist him, patient was awake and alert. At baseline, patient is nonverbal, has deficits on the right side secondary to a previous CVA. Patient is unable to provide any history Related Data Home Medications Medication Instructions Recorded Confirmed aspirin 81 mg tablet,delayed 81 mg PO DAILY 04/25/22 04/25/22 release irbesartan 300 mg tablet 1 tab PO DAILY 04/25/22 04/25/22 metoprolol succinate 25 mg 1 tab PO DAILY 04/25/22 04/25/22 tablet,extended release 24 hr multivitamin 1 tab PO DAILY 04/25/22 04/25/22 Previous Rx's Medication Instructions Recorded diaper,brief,adult,disposable #48 ea 08/14/21 diaper,brief,adult,disposable #96 ea 08/21/21 (Desiree Shea-Lon) atorvastatin 80 mg tablet 80 mg PO DAILY #30 tabs 04/29/22 paroxetine HCl 10 mg tablet 10 mg PO DAILY #90 tabs 04/30/22 amlodipine 10 mg tablet 10 mg PO DAILY #30 tabs 05/05/22 Allergies Allergy/AdvReac Type Severity Reaction Status Date / Time codeine Allergy Mild mild Verified 03/03/22 15:31 Penicillins Allergy Mild mild Verified 03/03/22 15:31 morphine Allergy Unknown unknown Verified 03/03/22 15:31 Review of Systems Review of Systems: Yes Unobtainable due to mental condition PMFSH Past Medical History Medical History CAD (coronary artery disease) Cancer of skin of left ear CVA (cerebral vascular accident) High blood pressure History of prostate cancer HTN (hypertension) Surgical History S/P CABG x 5 Family History Family History Mother High blood pressure Father Heart disease Other Substance use disorder Social History Social History Household Members: None Housing: House Do you presently have visiting nurse or other home services: No Unable to assess alcohol history related to: Unable to respond Alcohol intake: never Patient Tobacco Use Status: Former Tobacco user Tobacco use type: Cigarette Smoked in Last 30 Days: No e-Cigarette/Vaping Use: Never Used Second Hand Smoke Exposure: No Advance Directives: Yes Advance Directives on File: Yes Advance Directives Date on File: 04/30/22 service: No Current occupational status: retired Cognitive needs: No Hearing needs: No Vision needs: No Physical Exam Vital Signs: Vital Signs: Last Vital Signs Temp 98.3 F 05/14/22 21:23 Pulse 73 05/14/22 21:23 Resp 18 05/14/22 21:23 BP 138/74 05/14/22 21:23 Pulse Ox 98 05/14/22 21:23 O2 Del Method 05/14/22 21:23 BMI result Body Mass Index 27.2 Const: Other: Appearance: Alert. Does not seem in acute distress Eyes: Pupils equal, round and reactive to light. ENT: Pharynx normal. Neck: In C-spine precautions, no palpable step-offs, does not seem to be tender on palpation over the C-spine CVS: Normal heart rate and rhythm. Pulses normal. Normal S1 and S2 Respiratory: No respiratory distress. Breath sounds normal. No Wheezing. No rales Abdomen: Soft and nontender. No rigidity. No distention. Skin: Skin warm and dry. Normal skin color. Normal skin turgor. Extremities: No lower extremity edema. No Lacerations. No Rash Neuro: Unable to move his right arm, seems to be tender, chronic CVA versus new injury Psych: calm, cooperative Course Course Course Narrative: -patient's CT scans and x-rays pending -patient does not seem to be in pain Medical Decision Making Medical Decision Making [facility] Narrative: - patient's labs at baseline, no UTI Differential Diagnosis Differential Diagnoses: The differential diagnosis associated with the presentation includes ( minor head injury, concussion, contusion, intracranial hemorrhage) Lab Data [facility] Lab Attestation statement: I reviewed the patient's lab results. 05/14/22 20:28 05/14/22 20:28 Labs: Lab Results 05/14/22 05/14/22 05/14/22 Range/Units 20:28 20:28 20:28 WBC 8.5 (4.8-10.8) X10*3/uL RBC 4.24 L (4.60-5.80) X10*6/uL Hgb 12.4 L (14.0-18.0) g/dl Hct 39.7 L (42.0-52.0) % MCV 93.6 (80.0-98.0) fL MCH 29.2 (27.0-33.0) pg MCHC 31.2 (31.0-36.0) g/dl RDW 12.7 (11.0-16.0) % Plt Count 43 L D (160-400) X10*3/uL MPV 11.6 (9.4-12.4) fL Immature Gran % (Auto) 0.6 H (0.0-0.4) % Neut % (Auto) 38.4 L (45-73) % Lymph % (Auto) 26.7 (20-40) % [place] % (Auto) 33.7 H (2-11) % Eos % (Auto) 0.4 (0-4) % Baso % (Auto) 0.2 (0-2) % Lymph # (Auto) 2.3 (1.2-4.9) X10*3/uL [place] # (Auto) 2.9 H (0.1-1.2) X10*3/uL Eos # (Auto) 0.0 (0.0-0.4) X10*3/uL Baso # (Auto) 0.0 (0.0-0.2) X10*3/uL Abs Immat Gran (auto) 0.05 H (0.00-0.03) X10*3/uL Absolute Neuts (auto) 3.3 (2.0-8.3) x10*3/uL Absolute Nucleated RBC 0.000 (0.0-0.012) X10*3/uL Nucleated RBC % (auto) 0.0 (0.0-0.2) /100WBC Smear Tech's Comments VERIFIED Sodium 141 (135-145) mmol/L Potassium 5.1 D (3.3-5.1) mmol/L Chloride 109 H (96-108) mmol/L Carbon Dioxide 21 L (22-29) mmol/L Anion Gap 16 (12-20) BUN 24 H (9-16) mg/dL Creatinine 1.17 (0.5-1.4) mg/dL Estim Creat Clear Calc 47.6 Estimated GFR 59 Random Glucose 100 (60-115) mg/dL Calcium 8.6 (8.4-10.2) mg/dL Total Bilirubin 0.6 (0.0-1.0) mg/dL Direct Bilirubin 0.2 (0.0-0.5) mg/dL AST 26 (5-37) U/L ALT 17 (0-40) U/L Alkaline Phosphatase 60 (39-117) U/L Total Protein 7.0 (6.5-8.0) g/dL Albumin 3.6 (3.5-5.0) g/dL Urine Color Yellow Urine Appearance Clear Urine pH 5.5 (5.0-9.0) Ur Specific [place] 1.020 (1.005-1.025) Urine Protein 30 (1+) H (Neg-Trace) mg/dL Urine Glucose (UA) Negative (Negative) mg/dL Urine Ketones Negative (Negative) mg/dL Urine Blood Trace H (Negative) Urine Nitrite Negative (Negative) Ur Leukocyte Esterase Negative (Negative) Urine RBC 3-5 H (0-2) /HPF Urine WBC 0-5 (0-5) /HPF Ur Squamous Epith Cells 0-2 (0-2) /HPF Urine Bacteria 1+ (None Seen) Hyaline Casts 0-2 (0-2) /LPF Independent Interpretation I performed an independent interpretation of an: Plain X-Ray ( interpretation of shoulder x-ray: No fracture, no dislocation) and CT Scan ( my interpretation head CT: No intracranial bleed, ventricles seem a bit dilated) Radiology Impression Discussion of test interpretation with radiology: I have reviewed the radiologist's reading. Radiologist Impression: Shoulder x-ray: FINDINGS: There is loss of glenohumeral and AC joint space with periarticular spurring. No visible acute fracture, dislocation or subluxation seen. The soft tissues are normal. XR/XR shoulder RT min 2V IMPRESSION: Degenerative arthritic changes right shoulder. FINDINGS: There is no acute intra-axial, extra-axial bleed, masses, collection or midline shift. There is left frontal lobe/coronal radiata hypodensity from old infarction. This was noted on the previous MRI brain 04/25/2022. There is no acute infarction evolution. The lateral ventricles are symmetrical but moderately enlarged and so are the cortical sulci. Bone windows reveal no calvarial abnormality. There is no scalp soft tissue abnormality. Bilateral paranasal sinuses and mastoid air cells are well-aerated. There is mild mucoperiosteal thickening bilateral maxillary sinuses. CT/CT cervical spine wo IV con IMPRESSION: 1.? No acute intracranial process seen. 2.? Old left frontal lobe/eid radiata infarct. 3.? Age-related cerebral volume loss. 4.? Chronic bilateral maxillary sinus inflammatory changes.. Discharge Plan Discharge Clinical Impression: Fall, Head injury Patient Disposition: Home, Self-Care Prescriptions: No Action (DME) Desiree Briefs-Small Misc See Rx Instructions .Route Qty: 96 0RF Rx Instructions: change 3 times daily paroxetine HCl 10 mg tablet 10 mg PO DAILY Qty: 90 0RF amlodipine 10 mg tablet 10 mg PO DAILY Qty: 30 1RF Protocol: Hold for SBP< HOLD for SBP < : 90 metoprolol succinate 25 mg tablet extended release 24 hr 1 tab PO DAILY irbesartan 300 mg tablet 1 tab PO DAILY multivitamin Tablet 1 tab PO DAILY aspirin 81 mg Tablet,Delayed Release (Dr/Ec) 81 mg PO DAILY atorvastatin 80 mg Tablet 80 mg PO DAILY Qty: 30 0RF (DME) diaper,brief,adult,disposable Misc See Rx Instructions .MEDSUPPLY Qty: 48 5RF Rx Instructions: As directed - 2 per day
[2022-05-14 20:45] LABS: Basophils Percent Auto 0.2 % (0-2); Eosinophils Percent Auto 0.4 % (0-4); Hematocrit 39.7 % (42.0-52.0); Hemoglobin 12.4 g/dl (14.0-18.0); Imm Gran Abs Auto 0.05 X10*3/uL (0.00-0.03); Imm Gran Pct Auto 0.6 % (0.0-0.4); Lymphocytes Absolute Auto 2.3 X10*3/uL (1.2-4.9); Lymphocytes Percent Auto 26.7 % (20-40); MANUAL DIFF FLAG SCAN; Mean Corpuscular HGB Conc 31.2 g/dl (31.0-36.0); Mean Corpuscular Hemoglobin 29.2 pg (27.0-33.0); Mean Corpuscular Volume 93.6 fL (80.0-98.0); Mean Platelet Volume 11.6 fL (9.4-12.4); Monocytes Absolute Auto 2.9 X10*3/uL (0.1-1.2); Monocytes Percent Auto 33.7 % (2-11); Neutrophils Absolute Auto 3.3 x10*3/uL (2.0-8.3); Neutrophils Percent Auto 38.4 % (45-73); PLT CLUMP 1; Red Blood Count 4.24 X10*6/uL (4.60-5.80); Red Cell Distribution Width 12.7 % (11.0-16.0); SCAN SMEAR FLAG 1
[2022-05-14 20:48] LABS: Appearance Urine Clear; Color Urine Yellow; Glucose Urine UA Negative (Negative); Leukocyte Esterase Urine Negative (Negative); Nitrite Urine Negative (Negative); PH 5.5 (5.0-9.0); UMIC TRIGGER UACC YES; Urine Blood Trace (Negative); Urine Ketones Negative (Negative); Urine Protein 30 (1+) mg/dL (Neg-Trace)
[2022-05-14 21:12] LABS: Bacteria Urine 1+ (None Seen); Hyaline Casts Urine 0-2 /LPF (0-2); Squamous Epithelial Cell Urine 0-2 /HPF (0-2); WBC Urine 0-5 /HPF (0-5)
[2022-05-14 21:13] LABS: Alanine Aminotransferase 17 U/L (0-40); Albumin Level 3.6 g/dL (3.5-5.0); Alkaline Phosphatase 60 U/L (39-117); Anion Gap 16 (12-20); Aspartate Amino Transferase 26 U/L (5-37); Bilirubin Direct 0.2 mg/dL (0.0-0.5); Bilirubin Total 0.6 mg/dL (0.0-1.0); Blood Urea Nitrogen 24 mg/dL (9-16); Calcium 8.6 mg/dL (8.4-10.2); Carbon Dioxide 21 mmol/L (22-29); Chloride 109 mmol/L (96-108); Creatinine Clr Calc Pharmacy 47.6; Estimated Glomerular Filt Rate 59; Glucose Random 100 mg/dL (60-115); Potassium 5.1 mmol/L (3.3-5.1); Sodium 141 mmol/L (135-145)
[2022-05-14 21:17] LABS: Platelet Count 43 X10*3/uL (160-400); White Blood Count 8.5 X10*3/uL (4.8-10.8)
[2022-05-14 21:19] LABS: SLIDE REVIEW VERIFIED
[2022-05-14 21:23] VITALS: BP 138/74; PULSE 73; RESP 18; TEMP 36.8; O2SAT 98
== END 2022-05-15 02:07 | disposition home or self-care (01) ==
PROVIDERS: Emergency Provider Emergency Medicine
DX: S09.90XA Unspecified injury of head, initial encounter (principal); W07.XXXA Fall from chair, initial encounter; Z95.1 Presence of aortocoronary bypass graft; Y93.9 Activity, unspecified; Y92.129 Unspecified place in nursing home as the place of occurrence of the external cause; Y99.9 Unspecified external cause status
CPT/HCPCS: 36415; 70450; 72125; 73030; 80048; 80076; 81001; 85025; 99284